=== PATIENT | male | born 1950 | race American Indian/Alaskan Native ===

== ENCOUNTER 2017-08-02 | Inpatient (IN) | payer OTHER ==
[2017-08-02 01:03] LABS: Basophils # (Auto) 0.1 K/mm3 (0.0-0.1); Basophils % (Auto) 0.4 % (0.0-1.8); Eosinophils % (Auto) 0.2 % (0.0-4.3); Hematocrit 40.1 % (35.5-45.6); Hemoglobin 12.7 gm/dl (11.8-15.2); Lymphocytes # (Auto) 0.5 K/mm3 (1.2-5.4); Lymphocytes % (Auto) 3.3 % (13.4-35.0); Mean Corpuscular HGB Conc 32 % (32-34); Mean Corpuscular Hemoglobin 27 pg (28-32); Mean Corpuscular Volume 85 fl (84-94); Monocytes # (Auto) 1.1 K/mm3 (0.0-0.8); Monocytes % (Auto) 6.8 % (0.0-7.3); Platelet Count 298 K/mm3 (140-440); Red Blood Count 4.74 M/mm3 (3.65-5.03); Red Cell Distribution Width 14.8 % (13.2-15.2)
[2017-08-02 01:09] LABS: Calcium 8.6 mg/dL (8.4-10.2)
--- NOTE | 2017-08-02 01:17 | Emergency Department Report ---
HPI - General Chief Complaint: Syncope Time Seen by Provider: 08/02/17 00:59 - HPI HPI: Room 6 The patient is a 66-year-old male presenting with a chief complaint of syncope. He states this evening at approximately 23:30 he was walking into the room when began to feel off balance as he noticed himself bouncing into the driver. Family states the patient walked into the room and then fell face first onto the ground. There was no seizure activity. Family states the patient began to respond after approximately 10 seconds. Patient only complains of pain to the left supraorbital ridge. Patient denied any preceding/following chest pain, shortness of breath, headache nausea or vomiting. Patient is certain he is up- to-date with his tetanus Location: Central nervous system Duration: [See above] Quality: Syncope Severity: Moderate Modifying factors: [see above] Context: [see above] Mode of transportation: [not driving] ED Past Medical Hx - Past Medical History Previous Medical History?: Yes Hx Hypertension: Yes (non-compliant w/meds) Hx Seizures: Yes Additional medical history: 3.5 cm frontal mass secondary to meningioma seen on MRI 09/18/2014 - Surgical History Past Surgical History?: Yes Hx Appendectomy: Yes Additional Surgical History: Brain sx - Family History Family history: no significant - Social History Smoking Status: Current Every Day Smoker (1/14 pack per day) Substance Use Type: None (denies illicit drug use), Alcohol (24 ounces of beer daily) - Medications Home Medications: Home Medications Medication Instructions Recorded Confirmed Last Taken Type levETIRAcetam [Keppra TAB] 500 mg PO BID #60 tablet 09/20/14 11/25/15 10/20/14 Rx Citalopram Hydrobromide [celeXA] 40 mg PO DAILY 11/25/15 11/25/15 Unknown History ED Review of Systems ROS: Stated complaint: LOW BP Other details as noted in HPI Eyes: denies: eye pain ENT: denies: throat pain Respiratory: denies: shortness of breath Cardiovascular: denies: chest pain Gastrointestinal: denies: abdominal pain, nausea, vomiting Genitourinary: denies: dysuria Musculoskeletal: denies: back pain Neurological: other (syncope). denies: headache Physical Exam - Physical Exam Vital Signs: Vital Signs 08/02/17 00:26 Temperature 98 F Pulse Rate 89 Respiratory 18 Rate Blood Pressure 115/57 Blood Pressure 115/57 [Right] O2 Sat by Pulse 96 Oximetry Physical Exam: GENERAL: The patient is well-developed well-nourished male lying on stretcher not appearing to be in acute distress. [] HEENT: Normocephalic. Healing laceration just lateral to the left supraorbital ridge. There is already scab formation. Extraocular motions are intact. Patient has moist mucous membranes. NECK: Supple. Trachea midline CHEST/LUNGS: Clear to auscultation. There is no respiratory distress noted. HEART/CARDIOVASCULAR: Regular. There is no tachycardia. There is no gallop rub or murmur. ABDOMEN: Abdomen is soft, nontender. Patient has normal bowel sounds. There is no abdominal distention. SKIN: There is no rash. There is no edema. There is no diaphoresis. NEURO: The patient is awake, alert, and oriented. The patient is cooperative. The patient has no focal neurologic deficits. The patient has normal speech. Cranial nerves II through XII grossly intact, no drift MUSCULOSKELETAL: There is no evidence of acute injury. ED Course Vital Signs 08/02/17 00:26 Temperature 98 F Pulse Rate 89 Respiratory 18 Rate Blood Pressure 115/57 Blood Pressure 115/57 [Right] O2 Sat by Pulse 96 Oximetry ED Medical Decision Making - Lab Data Result diagrams: 08/02/17 00:38 08/02/17 00:38 Laboratory Tests 08/02/17 08/02/17 08/02/17 00:38 00:38 00:38 WBC 16.3 H RBC 4.74 Hgb 12.7 Hct 40.1 MCV 85 MCH 27 L MCHC 32 RDW 14.8 Plt Count 298 Lymph % (Auto) 3.3 L [place] % (Auto) 6.8 Eos % (Auto) 0.2 Baso % (Auto) 0.4 Lymph # 0.5 L [place] # 1.1 H Eos # 0.0 Baso # 0.1 Seg Neutrophils % 89.3 H Seg Neutrophils # 14.5 H Sodium 137 Potassium 4.5 Chloride 97.9 L Carbon Dioxide 25 Anion Gap 19 BUN 14 Creatinine 1.5 Estimated GFR 57 BUN/Creatinine Ratio 9 Glucose 107 H Calcium 8.6 Total Creatine Kinase 222 H CK-MB (CK-2) 2.4 CK-MB (CK-2) Rel Index 1.0 Troponin T < 0.010 Plasma/Serum Alcohol 08/02/17 01:29 WBC RBC Hgb Hct MCV MCH MCHC RDW Plt Count Lymph % (Auto) [place] % (Auto) Eos % (Auto) Baso % (Auto) Lymph # [place] # Eos # Baso # Seg Neutrophils % Seg Neutrophils # Sodium Potassium Chloride Carbon Dioxide Anion Gap BUN Creatinine Estimated GFR BUN/Creatinine Ratio Glucose Calcium Total Creatine Kinase CK-MB (CK-2) CK-MB (CK-2) Rel Index Troponin T Plasma/Serum Alcohol < 0.01 - EKG Data -: EKG Interpreted by Me EKG shows normal: sinus rhythm Rate: normal - EKG Data When compared to previous EKG there are: previous EKG unavailable Interpretation: nonspecific ST-T wave yuri (biphasic T waves in leads V3, V4, V5 , V6) - Radiology Data Radiology results: report reviewed (CT head), image reviewed (CT head, CT cervical spine) CT head (read by radiologist)-no acute intracranial abnormality CT cervical spine (read by radiologist)- no acute cervical fracture identified - Differential Diagnosis syncope, dysrhythmia, ACS, ICH Critical care attestation.: If time is entered above; I have spent that time in minutes in the direct care of this critically ill patient, excluding procedure time. ED Disposition Clinical Impression: Syncope Disposition: DC-09 OP ADMIT IP TO THIS HOSP Is pt being admited?: Yes Does the pt Need Aspirin: Yes Condition: Fair Instructions: Syncope (ED) Referrals: ASCENCION MENJIVAR MD [Primary Care Provider] - 3-5 Days Time of Disposition: 04:07 (hospitalist paged (Dr. Rosina Campbell))
[2017-08-02 01:38] LABS: Creatine Kinase MB 2.4 ng/mL (0.0-4.0)
--- NOTE | 2017-08-02 03:57 | Cat Scan Report ---
FINAL REPORT EXAM: CT HEAD/BRAIN WO CON HISTORY: syncope, fell on face TECHNIQUE: CT imaging is acquired through the brain without contrast. Transaxial reformations are provided. PRIORS: None. FINDINGS: Prior right frontal craniotomy with associated subjacent encephalomalacia. Ventricles and CSF spaces are otherwise within normal limits. There are additional scattered deep and subcortical white matter hypodense foci, which are compatible with microvascular angiopathy. No acute intracranial hemorrhage or mass effect. No acute skull fracture. No significant abnormality within the imaged paranasal sinuses or mastoid air cells. IMPRESSION: No acute intracranial abnormality. 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
--- NOTE | 2017-08-02 04:03 | Cat Scan Report ---
FINAL REPORT EXAM: CT CERVICAL SPINE WO CON HISTORY: syncope, fell on face TECHNIQUE: CT imaging is acquired through the cervical spine without contrast. Transaxial, coronal and sagittal reformations are provided. PRIORS: None. FINDINGS: The cervical spine appears intact. There is moderate intervertebral disc space narrowing at C5-C6 and C6-C7 is with associated endplate remodeling and spondylosis. Vertebral body heights are otherwise preserved. No acute fracture or listhesis. Atlanto-dens interval and odontoid process are intact. Intervertebral disc spaces are otherwise preserved. No perivertebral soft tissue swelling or hematoma identified. Limited soft tissue exam of the visualized neck is unremarkable. Partially imaged centrilobular emphysema in the lung apices. IMPRESSION: No acute cervical spine fracture identified. Sensitivity of fracture detection is decreased by degenerative findings. Correlate with physical exam and follow up as warranted.
[2017-08-02] MEDS ORDERED: ASPIRIN PO ONE (04:07)
[2017-08-02 04:08] LABS: Free T4 (Free Thyroxine) 1.05 ng/dL (0.76-1.46)
[2017-08-02] MEDS ORDERED: ASPIRIN ONE (04:38)
[2017-08-02] MEDS ORDERED: ZOFRAN IV PRN (05:36)
[2017-08-02] MEDS ORDERED: TYLENOL PO PRN (05:36)
[2017-08-02] MEDS ORDERED: SODIUM CHLORIDE FLUSH SYRINGE 10 ML IV PRN (05:36)
--- NOTE | 2017-08-02 06:28 | History and Physical Report ---
History of Present Illness Date of examination: 08/02/17 Date of admission: 08/02/17 04:09 History of present illness: 66-year-old man history of hypertension, seizure comes emergency room because all he was walking in the house he had a syncopal episode for about 10 seconds. He sustained an abrasion to the left face. No aurathat's that's really where , morning symptoms Review of systems Constitutional: no weight loss, chills Ears, eyes, nose, mouth and throat: no nasal congestion, no nasal discharge, no sinus pressure, no vision change, no red eye. Neck: No neck pain or rigidity. Cardiovascular: no chest pain, palpitations Respiratory: No cough, shortness of breath Gastrointestinal: no abdominal pain, hematochezia Genitourinary : no dysuria, frequency , no hematuria Musculoskeletal: no joint swelling or muscle ache Integumentary: no rash, no pruritis Neurological: no parathesias, no numbness, no focal weakness Endocrine: no cold or heat intolerance, no polyuria or polydipsia Hematologic/Lymphatic: no easy bruising, no easy bleeding, no gland swelling Allergic/Immunologic: no urticaria, no angioedema. PAST MEDICAL HISTORY: Hypertension, seizure PAST SURGICAL HISTORY: Appendectomy, excision of brain tumor SOCIAL HISTORY: Denies tobacco, drugs, one beer a day FAMILY HISTORY: Hypertension Medications and Allergies Allergies Allergy/AdvReac Type Severity Reaction Status Date / Time No Known Allergies Allergy Verified 09/18/14 20:27 Home Medications Medication Instructions Recorded Confirmed Last Taken Type levETIRAcetam [Keppra TAB] 500 mg PO BID #60 tablet 09/20/14 08/02/17 10/20/14 Rx Citalopram Hydrobromide [celeXA] 40 mg PO DAILY 11/25/15 08/02/17 Unknown History Cholecalciferol (Vitamin D3) 1,000 unit PO DAILY 08/02/17 08/02/17 Unknown History [Vitamin D3] Finasteride [Proscar] 5 mg PO DAILY 08/02/17 08/02/17 Unknown History Tamsulosin HCl [Flomax] 0.4 mg PO DAILY 08/02/17 08/02/17 Unknown History Lisinopril [Zestril TAB] 2.5 mg PO QDAY #30 tab 08/05/17 Unknown Rx Active Meds: Active Medications Acetaminophen (Tylenol) 650 mg PO Q4H PRN PRN Reason: Pain MILD(1-3)/Fever >100.5/GUNTER Ondansetron HCl (Zofran) 4 mg IV Q8H PRN PRN Reason: Nausea And Vomiting Pneumococcal Polyvalent Vaccine (Pneumovax 23) 0.5 ml IM .ONCE ONE Stop: 08/02/17 12:01 Sodium Chloride (Sodium Chloride Flush Syringe 10 Ml) 10 ml IV BID NETTA Sodium Chloride (Sodium Chloride Flush Syringe 10 Ml) 10 ml IV PRN PRN PRN Reason: LINE FLUSH Exam - Physical Exam Narrative exam: Gen. appearance: Patient lying in bed, no apparent distress HEENT: Normocephalic, atraumatic, pupils equally round and reactive to light, extraocular movement intact, and no sclericterus,. No JVD or thyromegaly or nodule,neck supple, no carotid bruit ,mucous membranes moist, no exudate or erythema Heart: S1, S2, regular rate and rhythm Lungs: Clear to auscultation bilaterally, breathing comfortable Abdomen: Positive bowel sounds, nontender, nondistended, no organomegaly Extremity: No edema, cyanosis, clubbing Skin: No rash, nodules, warm, dry Neuro: Oriented 3, cranial nerves II-12 intact, speech is fluent, motor and sensory intact - Constitutional Vitals: Temp Pulse Resp BP Pulse Ox 97.6 F 83 21 111/70 95 08/02/17 04:52 08/02/17 04:40 08/02/17 04:40 08/02/17 04:40 08/02/17 04:40 Results - Labs CBC & Chem 7: 08/03/17 05:40 08/03/17 05:40 Labs: Abnormal lab results 08/02/17 08/02/17 08/02/17 Range/Units 00:38 00:38 00:38 WBC 16.3 H (4.5-11.0) K/mm3 MCH 27 L (28-32) pg Lymph % (Auto) 3.3 L (13.4-35.0) % Lymph # 0.5 L (1.2-5.4) K/mm3 [place] # 1.1 H (0.0-0.8) K/mm3 Seg Neutrophils % 89.3 H (40.0-70.0) % Seg Neutrophils # 14.5 H (1.8-7.7) K/mm3 Chloride 97.9 L (98-107) mmol/L Glucose 107 H (75-100) mg/dL Total Creatine Kinase 222 H (55-170) units/L - Imaging and Cardiology CT Scan - head: report reviewed Assessment and Plan CT neck reviewed Assessment Syncope Leukocytosis Hypertension Seizure Plan Admit to medicine Check cardiac enzymes, orthostatics, carotid Doppler, echo Consult cardiology, panculture, no signs of infection DVT prophylaxis
--- NOTE | 2017-08-02 08:35 | XRay Report ---
FINAL REPORT EXAM: XR CHEST 1V AP HISTORY: hi wbc TECHNIQUE: AP portable view(s) of the chest obtained. PRIORS: None. FINDINGS: No mediastinal shift. Cardiac silhouette is not enlarged. Hyperaeration of the lungs. No pneumothorax, effusion, or focal pulmonary opacity identified. No acute skeletal findings. IMPRESSION: No acute pulmonary finding identified. Sequela of COPD.
--- NOTE | 2017-08-02 09:11 | Progress Note ---
Assessment and Plan Syncope Leukocytosis Hypertension Seizure Plan Admit to medicine Check cardiac enzymes, orthostatics, carotid Doppler, echo Consult cardiology, panculture, no signs of infection DVT prophylaxis Subjective Date of service: 08/02/17 Objective - Constitutional Vitals: Vital Signs - 12hr 08/02/17 08/02/17 08/02/17 00:26 01:00 03:06 Temperature 98 F Pulse Rate 89 87 84 Pulse Rate [ Apical] Respiratory 18 21 22 Rate Blood Pressure 115/57 93/71 111/57 Blood Pressure 115/57 [Right] O2 Sat by Pulse 96 97 93 Oximetry 08/02/17 08/02/17 08/02/17 04:00 04:40 04:52 Temperature 97.6 F Pulse Rate 79 83 Pulse Rate [ Apical] Respiratory 24 21 Rate Blood Pressure 108/68 111/70 Blood Pressure [Right] O2 Sat by Pulse 95 95 Oximetry 08/02/17 06:24 Temperature Pulse Rate Pulse Rate [ 83 Apical] Respiratory 20 Rate Blood Pressure Blood Pressure [Right] O2 Sat by Pulse Oximetry - Labs CBC & Chem 7: 08/02/17 00:38 08/02/17 00:38 Labs: Abnormal lab results 08/02/17 08/02/17 08/02/17 Range/Units 00:38 00:38 00:38 WBC 16.3 H (4.5-11.0) K/mm3 MCH 27 L (28-32) pg Lymph % (Auto) 3.3 L (13.4-35.0) % Lymph # 0.5 L (1.2-5.4) K/mm3 [place] # 1.1 H (0.0-0.8) K/mm3 Seg Neutrophils % 89.3 H (40.0-70.0) % Seg Neutrophils # 14.5 H (1.8-7.7) K/mm3 Chloride 97.9 L (98-107) mmol/L Glucose 107 H (75-100) mg/dL Total Creatine Kinase 222 H (55-170) units/L 08/02/17 Range/Units 06:26 WBC (4.5-11.0) K/mm3 MCH (28-32) pg Lymph % (Auto) (13.4-35.0) % Lymph # (1.2-5.4) K/mm3 [place] # (0.0-0.8) K/mm3 Seg Neutrophils % (40.0-70.0) % Seg Neutrophils # (1.8-7.7) K/mm3 Chloride (98-107) mmol/L Glucose (75-100) mg/dL Total Creatine Kinase 183 H (55-170) units/L
--- NOTE | 2017-08-02 09:30 | Event Note ---
Date: 08/02/17 Patient seen and examined Admitted this morning with a syncopal episode We'll continue current management and plan as dictated in H&P We will get physical therapy eval before discharge
[2017-08-02] MEDS ORDERED: NACL 0.9% 1000 ML 1,000 ML IV SCH (10:00)
[2017-08-02] MEDS ORDERED: NORVASC PO SCH (10:00)
[2017-08-02] MEDS: KEPPRA PO SCH ×2 (10:23→22:49)
[2017-08-02] MEDS: PROSCAR PO SCH (10:31)
[2017-08-02] MEDS: VITAMIN D3 PO SCH (10:32)
[2017-08-02] MEDS: SODIUM CHLORIDE FLUSH SYRINGE 10 ML IV SCH (10:42)
[2017-08-02 11:08] LABS: Bilirubin,Urine NEG (Negative); Blood,Urine SM (Negative); Color,Urine Yellow (Yellow); Protein,Urine <15 mg/dL mg/dL (Negative); RBC,Urine < 1.0 /HPF (0.0-6.0); Urobilinogen,Urine < 2.0 mg/dL (<2.0)
--- NOTE | 2017-08-02 11:09 | Consultation ---
History of Present Illness Consult date: 08/02/17 Consult reason: syncope History of present illness: 66 YO man with prior h/o brain tumor s/p resection/chemotherapy/radiation, htn, seizures, and polysubstance abuse who presented to hospital after episode of syncope. He reports he had been in his usual state of health and standing when he suddenly lost consciousness. He can not recall the exact symptoms prior to the episode but does not think he had any preceeding chest pain or palpitations. He is a poor historian and is not able to recall the nature of his previous brain tumor or where he had his treatment. He has prior h/o alcohol and cocaine abuse and reports he continues to drink 5- 6 drinks per day and used cocaine within the week. Past History Past Medical History: hypertension, other (brain tumor) Past Surgical History: appendectomy, Other (craniotomy for brain tumor resection ) Social history: alcohol abuse, other (cocaine abuse) Family history: hypertension Medications and Allergies Allergies Allergy/AdvReac Type Severity Reaction Status Date / Time No Known Allergies Allergy Verified 09/18/14 20:27 Home Medications Medication Instructions Recorded Confirmed Last Taken Type levETIRAcetam [Keppra TAB] 500 mg PO BID #60 tablet 09/20/14 08/02/17 10/20/14 Rx Citalopram Hydrobromide [celeXA] 40 mg PO DAILY 11/25/15 08/02/17 Unknown History Amlodipine Besylate [Norvasc] 5 mg PO DAILY 08/02/17 08/02/17 Unknown History Cholecalciferol (Vitamin D3) 1,000 unit PO DAILY 08/02/17 08/02/17 Unknown History [Vitamin D3] Finasteride [Proscar] 5 mg PO DAILY 08/02/17 08/02/17 Unknown History Tamsulosin HCl [Flomax] 0.4 mg PO DAILY 08/02/17 08/02/17 Unknown History Active Meds: Active Medications Acetaminophen (Tylenol) 650 mg PO Q4H PRN PRN Reason: Pain MILD(1-3)/Fever >100.5/GUNTER Cholecalciferol (Vitamin D3) 1,000 unit PO DAILY NETTA Citalopram Hydrobromide (Celexa) 40 mg PO DAILY NETTA Enoxaparin Sodium (Lovenox) 40 mg SUB-Q QDAY@2200 NETTA Finasteride (Proscar) 5 mg PO DAILY NETTA Sodium Chloride (Nacl 0.9% 1000 Ml) 1,000 mls @ 75 mls/hr IV DIRECT NETTA Levetiracetam (Keppra) 500 mg PO BID [facility] Ondansetron HCl (Zofran) 4 mg IV Q8H PRN PRN Reason: Nausea And Vomiting Pneumococcal Polyvalent Vaccine (Pneumovax 23) 0.5 ml IM .ONCE ONE Stop: 08/02/17 12:01 Sodium Chloride (Sodium Chloride Flush Syringe 10 Ml) 10 ml IV BID NETTA Sodium Chloride (Sodium Chloride Flush Syringe 10 Ml) 10 ml IV PRN PRN PRN Reason: LINE FLUSH Tamsulosin HCl (Flomax) 0.4 mg PO DAILY [facility] Review of Systems All systems: negative (per hpi) Physical Examination Vital Signs Temp Pulse Resp BP Pulse Ox 98 F 89 18 115/57 96 08/02/17 00:26 08/02/17 00:26 08/02/17 00:26 08/02/17 00:26 08/02/17 00:26 General appearance: no acute distress HEENT: Positive: PERRL, EOMI Cardiac: Positive: Reg Rate and Rhythm. Negative: Systolic Murmur Lungs: Positive: clear to auscultation, Normal Breath Sounds Abdomen: Positive: Soft, Active Bowel Sounds Extremities: Absent: edema Results 08/02/17 00:38 08/02/17 00:38 Cardiac Enzymes 08/02/17 08/02/17 08/02/17 Range/Units 00:38 00:38 00:38 WBC 16.3 H (4.5-11.0) K/mm3 RBC 4.74 (3.65-5.03) M/mm3 Hgb 12.7 (11.8-15.2) gm/dl Hct 40.1 (35.5-45.6) % MCV 85 (84-94) fl MCH 27 L (28-32) pg MCHC 32 (32-34) % RDW 14.8 (13.2-15.2) % Plt Count 298 (140-440) K/mm3 Lymph % (Auto) 3.3 L (13.4-35.0) % [place] % (Auto) 6.8 (0.0-7.3) % Eos % (Auto) 0.2 (0.0-4.3) % Baso % (Auto) 0.4 (0.0-1.8) % Lymph # 0.5 L (1.2-5.4) K/mm3 [place] # 1.1 H (0.0-0.8) K/mm3 Eos # 0.0 (0.0-0.4) K/mm3 Baso # 0.1 (0.0-0.1) K/mm3 Seg Neutrophils % 89.3 H (40.0-70.0) % Seg Neutrophils # 14.5 H (1.8-7.7) K/mm3 D-Dimer (0-234) ng/mlDDU Sodium 137 (137-145) mmol/L Potassium 4.5 (3.6-5.0) mmol/L Chloride 97.9 L (98-107) mmol/L Carbon Dioxide 25 (22-30) mmol/L Anion Gap 19 mmol/L BUN 14 (9-20) mg/dL Creatinine 1.5 (0.8-1.5) mg/dL Estimated GFR 57 ml/min BUN/Creatinine Ratio 9 % Glucose 107 H (75-100) mg/dL Calcium 8.6 (8.4-10.2) mg/dL Total Creatine Kinase 222 H (55-170) units/L CK-MB (CK-2) 2.4 (0.0-4.0) ng/mL CK-MB (CK-2) Rel Index 1.0 (0-4) Troponin T < 0.010 (0.00-0.029) ng/mL TSH (0.270-4.200) mlU/mL Free T4 (0.76-1.46) ng/dL Plasma/Serum Alcohol (0-0.07) % 08/02/17 08/02/17 08/02/17 Range/Units 01:29 01:29 04:22 WBC (4.5-11.0) K/mm3 RBC (3.65-5.03) M/mm3 Hgb (11.8-15.2) gm/dl Hct (35.5-45.6) % MCV (84-94) fl MCH (28-32) pg MCHC (32-34) % RDW (13.2-15.2) % Plt Count (140-440) K/mm3 Lymph % (Auto) (13.4-35.0) % [place] % (Auto) (0.0-7.3) % Eos % (Auto) (0.0-4.3) % Baso % (Auto) (0.0-1.8) % Lymph # (1.2-5.4) K/mm3 [place] # (0.0-0.8) K/mm3 Eos # (0.0-0.4) K/mm3 Baso # (0.0-0.1) K/mm3 Seg Neutrophils % (40.0-70.0) % Seg Neutrophils # (1.8-7.7) K/mm3 D-Dimer 154.93 (0-234) ng/mlDDU Sodium (137-145) mmol/L Potassium (3.6-5.0) mmol/L Chloride (98-107) mmol/L Carbon Dioxide (22-30) mmol/L Anion Gap mmol/L BUN (9-20) mg/dL Creatinine (0.8-1.5) mg/dL Estimated GFR ml/min BUN/Creatinine Ratio % Glucose (75-100) mg/dL Calcium (8.4-10.2) mg/dL Total Creatine Kinase (55-170) units/L CK-MB (CK-2) (0.0-4.0) ng/mL CK-MB (CK-2) Rel Index (0-4) Troponin T (0.00-0.029) ng/mL TSH 1.080 (0.270-4.200) mlU/mL Free T4 1.05 (0.76-1.46) ng/dL Plasma/Serum Alcohol < 0.01 (0-0.07) % 08/02/17 Range/Units 06:26 WBC (4.5-11.0) K/mm3 RBC (3.65-5.03) M/mm3 Hgb (11.8-15.2) gm/dl Hct (35.5-45.6) % MCV (84-94) fl MCH (28-32) pg MCHC (32-34) % RDW (13.2-15.2) % Plt Count (140-440) K/mm3 Lymph % (Auto) (13.4-35.0) % [place] % (Auto) (0.0-7.3) % Eos % (Auto) (0.0-4.3) % Baso % (Auto) (0.0-1.8) % Lymph # (1.2-5.4) K/mm3 [place] # (0.0-0.8) K/mm3 Eos # (0.0-0.4) K/mm3 Baso # (0.0-0.1) K/mm3 Seg Neutrophils % (40.0-70.0) % Seg Neutrophils # (1.8-7.7) K/mm3 D-Dimer (0-234) ng/mlDDU Sodium (137-145) mmol/L Potassium (3.6-5.0) mmol/L Chloride (98-107) mmol/L Carbon Dioxide (22-30) mmol/L Anion Gap mmol/L BUN (9-20) mg/dL Creatinine (0.8-1.5) mg/dL Estimated GFR ml/min BUN/Creatinine Ratio % Glucose (75-100) mg/dL Calcium (8.4-10.2) mg/dL Total Creatine Kinase 183 H (55-170) units/L CK-MB (CK-2) 2.0 (0.0-4.0) ng/mL CK-MB (CK-2) Rel Index 1.0 (0-4) Troponin T < 0.010 (0.00-0.029) ng/mL TSH (0.270-4.200) mlU/mL Free T4 (0.76-1.46) ng/dL Plasma/Serum Alcohol (0-0.07) % CBC 08/02/17 Range/Units 00:38 WBC 16.3 H (4.5-11.0) K/mm3 RBC 4.74 (3.65-5.03) M/mm3 Hgb 12.7 (11.8-15.2) gm/dl Hct 40.1 (35.5-45.6) % Plt Count 298 (140-440) K/mm3 Lymph # 0.5 L (1.2-5.4) K/mm3 [place] # 1.1 H (0.0-0.8) K/mm3 Eos # 0.0 (0.0-0.4) K/mm3 Baso # 0.1 (0.0-0.1) K/mm3 Comprehensive Metabolic Panel 08/02/17 Range/Units 00:38 Sodium 137 (137-145) mmol/L Potassium 4.5 (3.6-5.0) mmol/L Chloride 97.9 L (98-107) mmol/L Carbon Dioxide 25 (22-30) mmol/L BUN 14 (9-20) mg/dL Creatinine 1.5 (0.8-1.5) mg/dL Glucose 107 H (75-100) mg/dL Calcium 8.6 (8.4-10.2) mg/dL Assessment and Plan Syncope: Suspect his syncopal event is related to neurological process or seizure H/O brain tumor s/p resection, chemotherapy, and radiation Htn H/O Polysubstance abuse with ongoing alcohol and cocaine abuse. Recommend: Check Echocardiogram Check 12 lead ECG Telemetry monitoring Neurology Evaluation Patient counseled regarding abstaining from alcohol and cocaine abuse.
[2017-08-02] MEDS ORDERED: PNEUMOVAX 23 IM ONE (12:00)
[2017-08-02 13:52] LABS: Creatine Kinase MB 2.4 ng/mL (0.0-4.0)
[2017-08-02] MEDS: celeXA PO SCH (15:22)
[2017-08-02] MEDS: FLOMAX PO SCH (15:23)
[2017-08-02] MEDS: LOVENOX SUB-Q SCH (22:49)
[2017-08-03 05:58] LABS: Basophils % (Auto) 0.6 % (0.0-1.8); Eosinophils # (Auto) 0.3 K/mm3 (0.0-0.4); Eosinophils % (Auto) 3.7 % (0.0-4.3); Hematocrit 34.3 % (35.5-45.6); Hemoglobin 11.7 gm/dl (11.8-15.2); Lymphocytes # (Auto) 1.2 K/mm3 (1.2-5.4); Lymphocytes % (Auto) 15.5 % (13.4-35.0); Mean Corpuscular HGB Conc 34 % (32-34); Mean Corpuscular Hemoglobin 28 pg (28-32); Mean Corpuscular Volume 83 fl (84-94); Monocytes # (Auto) 0.8 K/mm3 (0.0-0.8); Monocytes % (Auto) 9.4 % (0.0-7.3); Platelet Count 291 K/mm3 (140-440); Red Blood Count 4.16 M/mm3 (3.65-5.03); Red Cell Distribution Width 14.8 % (13.2-15.2)
[2017-08-03 06:20] LABS: BUN/Creatinine Ratio 13; Blood Urea Nitrogen 15 mg/dL (9-20); Calcium 7.9 mg/dL (8.4-10.2); Hemolysis Index 4
[2017-08-03] MEDS: celeXA PO SCH (09:50)
[2017-08-03] MEDS: KEPPRA PO SCH ×2 (09:50→22:27)
[2017-08-03] MEDS: VITAMIN D3 PO SCH (09:51)
[2017-08-03] MEDS: PROSCAR PO SCH (09:51)
[2017-08-03] MEDS: FLOMAX PO SCH (09:51)
--- NOTE | 2017-08-03 11:17 | Progress Note ---
Assessment and Plan Syncope: Suspect his syncopal event is related to neurological process or seizure H/O brain tumor s/p resection, chemotherapy, and radiation Htn H/O Polysubstance abuse with ongoing alcohol and cocaine abuse Echocardiogram reports a mildly decreased LV function, EF 40-45%. Recommend: No further cardiac workup indicated. Patient counseled regarding abstaining from alcohol and cocaine abuse. [facility]. Subjective Date of service: 08/03/17 Interval history: Patient has no complaints. No reported cardiac events on telemetry monitoring overnight. Objective Vital Signs Temp Pulse Resp BP Pulse Ox 08/03/17 07:48 98.1 F 75 18 141/87 97 08/03/17 04:10 98.2 F 76 16 119/72 95 08/02/17 23:42 98.6 F 86 18 108/70 96 08/02/17 22:00 18 08/02/17 21:30 96 08/02/17 19:40 98.8 F 80 20 121/81 93 08/02/17 18:00 99.5 F 88 18 116/70 94 08/02/17 14:14 96 08/02/17 12:42 98.3 F 80 20 107/71 96 - Physical Examination General: No Apparent Distress HEENT: Positive: PERRL Cardiac: Positive: Reg Rate and Rhythm Neuro: Positive: Grossly Intact Abdomen: Positive: Soft, Active Bowel Sounds Extremities: Absent: edema - Labs and Meds Cardiac Enzymes 08/02/17 Range/Units 13:02 CK-MB (CK-2) 2.4 (0.0-4.0) ng/mL CBC 08/03/17 Range/Units 05:40 WBC 8.1 (4.5-11.0) K/mm3 RBC 4.16 (3.65-5.03) M/mm3 Hgb 11.7 L (11.8-15.2) gm/dl Hct 34.3 L (35.5-45.6) % Plt Count 291 (140-440) K/mm3 Lymph # 1.2 (1.2-5.4) K/mm3 [place] # 0.8 (0.0-0.8) K/mm3 Eos # 0.3 (0.0-0.4) K/mm3 Baso # 0.0 (0.0-0.1) K/mm3 Comprehensive Metabolic Panel 08/03/17 Range/Units 05:40 Sodium 142 (137-145) mmol/L Potassium 3.9 (3.6-5.0) mmol/L Chloride 106.3 (98-107) mmol/L Carbon Dioxide 24 (22-30) mmol/L BUN 15 (9-20) mg/dL Creatinine 1.2 (0.8-1.5) mg/dL Glucose 100 (75-100) mg/dL Calcium 7.9 L (8.4-10.2) mg/dL
[2017-08-03] MEDS: ZESTRIL PO SCH (14:24)
[2017-08-03] MEDS: NACL 0.9% 1000 ML 1,000 ML IV SCH (21:03)
[2017-08-03] MEDS: LOVENOX SUB-Q SCH (22:27)
[2017-08-03] MEDS: SODIUM CHLORIDE FLUSH SYRINGE 10 ML IV SCH (22:32)
--- NOTE | 2017-08-04 00:56 | Progress Note ---
Assessment and Plan Syncope: - Suspect his syncopal event is related to orthostatic hypotension - will hold BB, normal TSH/T4 - no home needs per PT, CT head showed no acute finding - No further cardiac workup indicated Orthostatic hypotension - hold all BP meds, will order serum cortisol H/O brain tumor - s/p resection, chemotherapy, and radiation - outpt follow up Htn, stable H/O Polysubstance abuse - h/o alcohol and cocaine abuse CHF with systolic dysfunction - Echocardiogram showed decreased LV function, EF 40-45%. h/o Seizure, on keppra BPH, on proscar Disposition: monitor orthostatic vitals, f/u serum morning cortisol. likely d/c home in the am. Patient will f/u with the [place] Brief History: 66 YO man with prior h/o brain tumor s/p resection/chemotherapy/ radiation, htn, seizures, and polysubstance abuse who presented to hospital after episode of syncope. Physical exam: Gen. appearance: Patient lying in bed, no apparent distress HEENT: Normocephalic, atraumatic, pupils equally round and reactive to light, extraocular movement intact, and no sclericterus,. No JVD or thyromegaly or nodule,neck supple, no carotid bruit ,mucous membranes moist, no exudate or erythema Heart: S1, S2, regular rate and rhythm Lungs: Clear to auscultation bilaterally, breathing comfortable Abdomen: Positive bowel sounds, nontender, nondistended, no organomegaly Extremity: No edema, cyanosis, clubbing Skin: No rash, nodules, warm, dry Neuro: Oriented 3, cranial nerves II-12 intact, speech is fluent, motor and sensory intact Subjective Date of service: 08/03/17 Interval history: Pt seen and examined denies any chest pain, ambulatory Had PT eval today, orthostatic vitals showed BP dropped on standing with relative tachycardia Objective - Constitutional Vitals: Vital Signs - 12hr 08/03/17 08/03/17 08/03/17 14:24 16:37 19:32 Temperature 97.9 F Pulse Rate 92 H 74 81 Respiratory 18 Rate Blood Pressure 107/73 128/77 139/84 Blood Pressure [Right] O2 Sat by Pulse 98 92 Oximetry 08/03/17 08/04/17 21:56 00:15 Temperature 98.9 F 98.6 F Pulse Rate 84 Respiratory 18 Rate Blood Pressure Blood Pressure 135/89 [Right] O2 Sat by Pulse Oximetry - Labs CBC & Chem 7: 08/03/17 05:40 08/03/17 05:40 Labs: Abnormal lab results 08/03/17 08/03/17 Range/Units 05:40 05:40 Hgb 11.7 L (11.8-15.2) gm/dl Hct 34.3 L (35.5-45.6) % MCV 83 L (84-94) fl [place] % (Auto) 9.4 H (0.0-7.3) % Seg Neutrophils % 70.8 H (40.0-70.0) % Calcium 7.9 L (8.4-10.2) mg/dL
--- NOTE | 2017-08-04 10:45 | Progress Note ---
Assessment and Plan Syncope Cardiomyopathy, unclear etiology Junctional and idioventricular rhythm noted on telemetry H/O brain tumor s/p resection, chemotherapy, and radiation Systemic Hypertension H/O Polysubstance abuse with ongoing alcohol and cocaine abuse Echocardiogram reports a mildly decreased LV function, EF 40-45%. Recommend: Further evaluation with lexiscan MPI in am given arrhythmias noted on tele Subjective Date of service: 08/04/17 Principal diagnosis: Syncope Interval history: Patient denies chest pain or shortness of breath Tele events noted Objective Vital Signs Temp Pulse Resp BP BP Pulse Ox 08/04/17 00:15 98.6 F 84 18 135/89 08/03/17 22:00 78 18 08/03/17 21:56 98.9 F 08/03/17 19:32 81 139/84 92 08/03/17 16:37 97.9 F 74 18 128/77 98 08/03/17 14:24 92 H 107/73 08/03/17 11:58 97.9 F 18 135/82 - Physical Examination General: No Apparent Distress HEENT: Positive: PERRL Neck: Positive: neck supple Cardiac: Positive: Reg Rate and Rhythm Lungs: Positive: Normal Exam Neuro: Positive: Grossly Intact Abdomen: Positive: Soft, Active Bowel Sounds Extremities: Absent: edema
[2017-08-04] MEDS: FLOMAX PO SCH (11:27)
[2017-08-04] MEDS: KEPPRA PO SCH ×2 (11:28→21:09)
[2017-08-04] MEDS: VITAMIN D3 PO SCH (11:28)
[2017-08-04] MEDS: celeXA PO SCH (11:28)
[2017-08-04] MEDS: PROSCAR PO SCH (11:29)
[2017-08-04] MEDS: NACL 0.9% 1000 ML 1,000 ML IV SCH (14:11)
[2017-08-04] MEDS: LOVENOX SUB-Q SCH (21:09)
[2017-08-05] MEDS: NACL 0.9% 1000 ML 1,000 ML IV SCH (00:44)
[2017-08-05] MEDS: SODIUM CHLORIDE FLUSH SYRINGE 10 ML IV SCH ×2 (00:45→07:41)
--- NOTE | 2017-08-05 05:23 | Progress Note ---
Assessment and Plan Assessment and plan: 66 YO man with prior h/o brain tumor s/p resection/chemotherapy/radiation, htn, seizures, and polysubstance abuse who presented to hospital after episode of syncope. Syncope: - Suspect his syncopal event is related to orthostatic hypotension - will hold BB, normal TSH/T4 - Echo shows 40-45% ef, - [place] of very low dose ACEI if symptoms improve. discussed side effects with the patient - no home needs per PT, CT head showed no acute finding - No further cardiac workup indicated Orthostatic hypotension - hold all BP meds, will order serum cortisol follow result outpatient. H/O brain tumor - s/p resection, chemotherapy, and radiation - outpt follow up Htn, stable H/O Polysubstance abuse - h/o alcohol and cocaine abuse CHF with systolic dysfunction - Echocardiogram showed decreased LV function, EF 40-45%. h/o Seizure, on keppra BPH, on proscar Disposition: monitor orthostatic vitals, f/u serum morning cortisol. likely d/c home in the am. Patient will f/u with the [place] Plan of care discussed with the patient and family at bedside History Interval history: Patient seen and examined, in no acute distress. Sitting up in the chair, denies dizziness, nausea, vomiting or diarrhea. Family at bedside Hospitalist Physical - Physical exam Narrative exam: Gen. appearance: Patient lying in bed, no apparent distress, temporal wasting noted HEENT: Normocephalic, atraumatic, pupils equally round and reactive to light, extraocular movement intact, and no sclericterus,. No JVD or thyromegaly or nodule,neck supple, no carotid bruit ,mucous membranes moist, no exudate or erythema Heart: S1, S2, regular rate and rhythm Lungs: Clear to auscultation bilaterally, breathing comfortable Abdomen: Positive bowel sounds, nontender, nondistended, no organomegaly Extremity: No edema, cyanosis, clubbing Skin: No rash, nodules, warm, dry Neuro: Oriented 3, cranial nerves II-12 intact, speech is fluent, motor and sensory intact - Constitutional Vitals: Temp Pulse Resp BP Pulse Ox 98.1 F 82 20 132/92 97 08/04/17 19:40 08/04/17 23:58 08/04/17 19:40 08/04/17 23:58 08/04/17 23:58 General appearance: Present: no acute distress Results - Labs CBC & Chem 7: 08/03/17 05:40 08/03/17 05:40 Labs: Laboratory Last Values WBC 8.1 K/mm3 (4.5-11.0) 08/03/17 05:40 RBC 4.16 M/mm3 (3.65-5.03) 08/03/17 05:40 Hgb 11.7 gm/dl (11.8-15.2) L 08/03/17 05:40 Hct 34.3 % (35.5-45.6) L 08/03/17 05:40 MCV 83 fl (84-94) L 08/03/17 05:40 MCH 28 pg (28-32) 08/03/17 05:40 MCHC 34 % (32-34) 08/03/17 05:40 RDW 14.8 % (13.2-15.2) 08/03/17 05:40 Plt Count 291 K/mm3 (140-440) 08/03/17 05:40 Lymph % (Auto) 15.5 % (13.4-35.0) 08/03/17 05:40 [place] % (Auto) 9.4 % (0.0-7.3) H 08/03/17 05:40 Eos % (Auto) 3.7 % (0.0-4.3) 08/03/17 05:40 Baso % (Auto) 0.6 % (0.0-1.8) 08/03/17 05:40 Lymph # 1.2 K/mm3 (1.2-5.4) 08/03/17 05:40 [place] # 0.8 K/mm3 (0.0-0.8) 08/03/17 05:40 Eos # 0.3 K/mm3 (0.0-0.4) 08/03/17 05:40 Baso # 0.0 K/mm3 (0.0-0.1) 08/03/17 05:40 Seg Neutrophils % 70.8 % (40.0-70.0) H 08/03/17 05:40 Seg Neutrophils # 5.7 K/mm3 (1.8-7.7) 08/03/17 05:40 D-Dimer 154.93 ng/mlDDU (0-234) 08/02/17 04:22 Sodium 142 mmol/L (137-145) 08/03/17 05:40 Potassium 3.9 mmol/L (3.6-5.0) 08/03/17 05:40 Chloride 106.3 mmol/L (98-107) 08/03/17 05:40 Carbon Dioxide 24 mmol/L (22-30) 08/03/17 05:40 Anion Gap 16 mmol/L 08/03/17 05:40 BUN 15 mg/dL (9-20) 08/03/17 05:40 Creatinine 1.2 mg/dL (0.8-1.5) 08/03/17 05:40 Estimated GFR > 60 ml/min 08/03/17 05:40 BUN/Creatinine Ratio 13 % 08/03/17 05:40 Glucose 100 mg/dL (75-100) 08/03/17 05:40 Calcium 7.9 mg/dL (8.4-10.2) L 08/03/17 05:40 Total Creatine Kinase 200 units/L (55-170) H 08/02/17 13:02 CK-MB (CK-2) 2.4 ng/mL (0.0-4.0) 08/02/17 13:02 CK-MB (CK-2) Rel Index 1.2 (0-4) 08/02/17 13:02 Troponin T < 0.010 ng/mL (0.00-0.029) 08/02/17 13:02 TSH 1.080 mlU/mL (0.270-4.200) 08/02/17 01:29 Free T4 1.05 ng/dL (0.76-1.46) 08/02/17 01:29 Urine Color Yellow (Yellow) 08/02/17 Unknown Urine Turbidity Clear (Clear) 08/02/17 Unknown Urine pH 5.0 (5.0-7.0) 08/02/17 Unknown Ur Specific [place] 1.006 (1.003-1.030) 08/02/17 Unknown Urine Protein <15 mg/dl mg/dL (Negative) 08/02/17 Unknown Urine Glucose (UA) Neg mg/dL (Negative) 08/02/17 Unknown Urine Ketones Neg mg/dL (Negative) 08/02/17 Unknown Urine Blood Sm (Negative) 08/02/17 Unknown Urine Nitrite Neg (Negative) 08/02/17 Unknown Urine Bilirubin Neg (Negative) 08/02/17 Unknown Urine Urobilinogen < 2.0 mg/dL (<2.0) 08/02/17 Unknown Ur Leukocyte Esterase Neg (Negative) 08/02/17 Unknown Urine WBC (Auto) 1.0 /HPF (0.0-6.0) 08/02/17 Unknown Urine RBC (Auto) < 1.0 /HPF (0.0-6.0) 08/02/17 Unknown U Epithel Cells (Auto) < 1.0 /HPF (0-13.0) 08/02/17 Unknown Plasma/Serum Alcohol < 0.01 % (0-0.07) 08/02/17 01:29
[2017-08-05] MEDS: ZESTRIL PO SCH (07:49)
[2017-08-05] MEDS ORDERED: LEXISCAN IV ONE (09:23)
--- NOTE | 2017-08-05 12:52 | Discharge Summary ---
Providers - Providers Date of Admission: 08/02/17 04:09 Attending physician: CHRISTOPHE PATRICIA MD 08/02/17 06:24 Consult to Physician [CONS] Routine Consulting Provider: BE LUKE Reason For Exam: syncope Place consult to:: Notified:: Phone number called:: [phone] Was contact made?: Yes If yes, spoke with:: ESME Time called:: 08:43 Comment:: LOUISE 08/02/17 09:29 Physical Therapy Evaluation and Treat [CONS] Routine Comment: Reason For Exam: Ambulation Primary care physician: ASCENCION MENJIVAR Hospitalization Reason for admission: syncope Condition: Stable Hospital course: 66 YO man with prior h/o brain tumor s/p resection/chemotherapy/radiation, htn, seizures, and polysubstance abuse who presented to hospital after episode of syncope. Patient was noted to be with orthostatic Hypotension, ivf was given while BB was discontinued, patient was counselled about susbtance abuse, stress test wsas done and was negative. patient was noted to have Junctional and idoventricular rhythm on telemetry but did not reoccur. I have advised close follow up with cardiology. TSH was normal as well as free T4. low dose Lisinopril was started on discharge, side effects discussed with the patient. Discharge Diagnosis Syncope Orthostatic hypotension H/O brain tumor Htn, Polysubstance abuse CHF with dsystolic dysfunction Seizure, BPH, Cardiomyopathy, unclear etiology Junctional and idioventricular rhythm noted on telemetry Disposition: DC-01 TO HOME OR SELFCARE Time spent for discharge: 35 mins Core Measure Documentation - Palliative Care Palliative Care/ Comfort Measures: Not Applicable - Core Measures Any of the following diagnoses?: none - VTE Discharge Requirements Deep Vein Thrombosis/Pulmonary Embolism Present on Admission: No Exam - Physical Exam Narrative exam: Gen. appearance: Patient lying in bed, no apparent distress, temporal wasting noted HEENT: Normocephalic, atraumatic, pupils equally round and reactive to light, extraocular movement intact, and no sclericterus,. No JVD or thyromegaly or nodule,neck supple, no carotid bruit ,mucous membranes moist, no exudate or erythema Heart: S1, S2, regular rate and rhythm Lungs: Clear to auscultation bilaterally, breathing comfortable Abdomen: Positive bowel sounds, nontender, nondistended, no organomegaly Extremity: No edema, cyanosis, clubbing Skin: No rash, nodules, warm, dry Neuro: Oriented 3, cranial nerves II-12 intact, speech is fluent, motor and sensory intact - Constitutional Vitals: Temp Pulse Resp BP Pulse Ox 98.4 F 79 18 140/92 98 08/05/17 07:16 08/05/17 10:00 08/05/17 07:16 08/05/17 07:16 08/05/17 07:16 Plan Activity: advance as tolerated, fall precautions Diet: low cholesterol Special Instructions: record daily BP diary Follow up with: ASCENCION MENJIVAR MD [Primary Care Provider] - 3-5 Days TALISHA MARKS MD [Staff Physician] - 7 Days Prescriptions: Lisinopril [Zestril TAB] 2.5 mg PO QDAY #30 tab
[2017-08-05] MEDS: FLOMAX PO SCH (13:33)
[2017-08-05] MEDS: celeXA PO SCH (13:33)
[2017-08-05] MEDS: PROSCAR PO SCH (13:34)
[2017-08-05] MEDS: KEPPRA PO SCH (13:34)
[2017-08-05] MEDS: VITAMIN D3 PO SCH (13:34)
--- NOTE | 2017-08-05 21:33 | Treadmill Report ---
STRESS TEST INDICATION: Syncope, cardiomyopathy, and arrhythmias. ORDERING PHYSICIAN: Dr. Michael Daniel. FINDINGS: There is no scintigraphic evidence of myocardial ischemia. The left ventricle is normal in size. No gating is available due to underlying ventricular arrhythmias. CONCLUSION: No scintigraphic evidence of myocardial ischemia. This is a low risk myocardial perfusion scan associated with a 1-year cardiovascular event, risk of less than 1%. JOB# [id number] AKLori/NTS
[2017-08-06 10:07] VITALS: BP 138/81
--- NOTE | 2017-08-07 17:10 | Vascular Lab Report ---
CAROTID DUPLEX STUDY: RIGHT PSVEDV CCA [id number]:[id number] CCA DIST:7320 ICA PROX:5925 ICA MID:7534 ICA DIST:7130 ECA: 9518 VERT: 65 18 LEFT PSVEDV CCA PROX:[id number] CCA DIST:7320 ICA PROX:8028 ICA MID:7228 ICA DIST:5527 ECA: 9522 VERT: 68 15 REASON FOR EXAM: Syncope. COMMENTS ON THE RIGHT: Doppler frequency analysis is consistent with 16 to 49 percent diameter reduction of the internal carotid artery. A small amount of plaque is seen. The common carotid artery is patent. The external carotid artery is patent. The vertebral artery has antegrade flow. COMMENTS ON THE LEFT: Doppler frequency analysis is consistent with 16 to 49 percent diameter reduction of the internal carotid artery. A small amount of plaque is seen. The common carotid artery is patent. The external carotid artery is patent. The vertebral artery has antegrade flow. IMPRESSION: Less than 50% diameter reduction in the internal carotid arteries bilaterally.
== END 2017-08-05 15:36 | disposition home or self-care (01) | DRG 312 ==
LOC: ED → 4A 04:09
PROVIDERS: ADMIT Internal Medicine; ATTEND Internal Medicine
PROC: 3E0234Z Introduction of Serum, Toxoid and Vaccine into Muscle, Percutaneous Approach (ICD-10-PCS; principal; 2017-08-02)
DX: I95.1 Orthostatic hypotension (principal); I42.9 Cardiomyopathy, unspecified; I44.2 Atrioventricular block, complete; I50.40 Unspecified combined systolic (congestive) and diastolic (congestive) heart failure; I11.0 Hypertensive heart disease with heart failure; F19.10 Other psychoactive substance abuse, uncomplicated; F17.200 Nicotine dependence, unspecified, uncomplicated; D72.829 Elevated white blood cell count, unspecified; R56.9 Unspecified convulsions; N40.0 Benign prostatic hyperplasia without lower urinary tract symptoms; Z90.49 Acquired absence of other specified parts of digestive tract; Z72.89 Other problems related to lifestyle; Z79.899 Other long term (current) drug therapy; Z82.49 Family history of ischemic heart disease and other diseases of the circulatory system; Z23 Encounter for immunization
CPT/HCPCS: 36415; 70450; 71045; 72125; 78452; 80048; 80320; 81001; 82533; 82550; 82553; 84439; 84443; 84484; 85025; 85379; 87040; 90732; 93005; 93010; 93017; 93306; 93880; 99406; A9502; G0480; G8978-GP; G8979-GP; G8980-GP; J1650; J2785; J7030

== ENCOUNTER 2017-09-25 20:20 | Inpatient (IN) | payer OTHER ==
--- NOTE | 2017-09-25 21:54 | Emergency Department Report ---
HPI - General Chief Complaint: Dizziness Time Seen by Provider: 09/25/17 21:33 - HPI HPI: Room 26 The patient is a 66-year-old male presenting with a chief complaint of lightheadedness. The patient states he's been lightheaded for 1 day. The patient stated for past 3-4 days his shortness of breath, shallow respirations and anterior chest pain. The patient describes his chest pain is dull in nature. Patient is to call this productive of clear mucous. Patient denies any history of fever over his spouse has noticed a subjective fever. There's been no nausea vomiting or diarrhea. Location: [See above] Duration: [See above] Quality: [See above] Severity: [See above] Modifying factors: [see above] Context: [see above] Mode of transportation: [not driving] ED Past Medical Hx - Past Medical History Hx Hypertension: Yes Hx Seizures: Yes Additional medical history: 3.5 cm frontal mass secondary to meningioma seen on MRI 09/18/2014 (surgically removed) - Surgical History Hx Appendectomy: Yes Additional Surgical History: Brain sx - Family History Family history: no significant - Social History Smoking Status: Current Some Day Smoker Substance Use Type: Marijuana - Medications Home Medications: Home Medications Medication Instructions Recorded Confirmed Last Taken Type levETIRAcetam [Keppra TAB] 500 mg PO BID #60 tablet 09/20/14 08/02/17 10/20/14 Rx Citalopram Hydrobromide [celeXA] 40 mg PO DAILY 11/25/15 08/02/17 Unknown History Cholecalciferol (Vitamin D3) 1,000 unit PO DAILY 08/02/17 08/02/17 Unknown History [Vitamin D3] Finasteride [Proscar] 5 mg PO DAILY 08/02/17 08/02/17 Unknown History Tamsulosin HCl [Flomax] 0.4 mg PO DAILY 08/02/17 08/02/17 Unknown History Lisinopril [Zestril TAB] 2.5 mg PO QDAY #30 tab 08/05/17 Unknown Rx ED Review of Systems ROS: Stated complaint: WEAKNESS Other details as noted in HPI Constitutional: fever (subjective) Respiratory: cough, shortness of breath Cardiovascular: chest pain Gastrointestinal: denies: nausea, vomiting, diarrhea Musculoskeletal: arthralgia Neurological: other (lightheadedness). denies: headache Physical Exam - Physical Exam Vital Signs: Vital Signs 09/25/17 20:57 Temperature 97 F L Pulse Rate 78 Respiratory 20 Rate Blood Pressure 86/56 O2 Sat by Pulse 96 Oximetry Physical Exam: GENERAL: The patient is well-developed well-nourished male lying on stretcher not appearing to be in acute distress. [] HEENT: Normocephalic. Atraumatic. Extraocular motions are intact. Patient has moist mucous membranes. NECK: Supple. Trachea midline CHEST/LUNGS: Clear to auscultation. There is no respiratory distress noted. HEART/CARDIOVASCULAR: Regular. There is no tachycardia. There is no gallop rub or murmur. Hypotensive ABDOMEN: Abdomen is soft, nontender. Patient has normal bowel sounds. There is no abdominal distention. SKIN: There is no rash. There is no edema. There is no diaphoresis. NEURO: The patient is awake, alert, and oriented. The patient is cooperative. Moves all extremities well. The patient has normal speech MUSCULOSKELETAL: There is no evidence of acute injury. ED Course Vital Signs 09/25/17 20:57 Temperature 97 F L Pulse Rate 78 Respiratory 20 Rate Blood Pressure 86/56 O2 Sat by Pulse 96 Oximetry ED Medical Decision Making - Lab Data Result diagrams: 09/25/17 21:49 09/25/17 21:49 Laboratory Tests 09/25/17 09/25/17 09/25/17 21:49 21:49 21:49 WBC 5.3 RBC 4.49 Hgb 12.1 Hct 37.9 MCV 84 MCH 27 L MCHC 32 RDW 16.0 H Plt Count 231 [place] % (Auto) Coal Handler Add Manual Diff Complete Total Counted 100 Seg Neuts % (Manual) 63.0 Band Neutrophils % 0 Lymphocytes % (Manual) 15.0 Reactive Lymphs % (Man) 0 Monocytes % (Manual) 7.0 Eosinophils % (Manual) 13.0 H Basophils % (Manual) 2.0 H Metamyelocytes % 0 Myelocytes % 0 Promyelocytes % 0 Blast Cells % 0 Nucleated RBC % Not Reportable Seg Neutrophils # Man 3.3 Band Neutrophils # 0.0 Lymphocytes # (Manual) 0.8 L Abs React Lymphs (Man) 0.0 Monocytes # (Manual) 0.4 Eosinophils # (Manual) 0.7 H Basophils # (Manual) 0.1 Metamyelocytes # 0.0 Myelocytes # 0.0 Promyelocytes # 0.0 Blast Cells # 0.0 WBC Morphology Not Reportable Hypersegmented Neuts Not Reportable Hyposegmented Neuts Not Reportable Hypogranular Neuts Not Reportable Smudge Cells Not Reportable Toxic Granulation Not Reportable Toxic Vacuolation Not Reportable Dohle Bodies Not Reportable Pelger-Huet Anomaly Not Reportable Mickey Rods Not Reportable Platelet Estimate Appears normal Clumped Platelets Not Reportable Plt Clumps, EDTA Not Reportable Large Platelets Not Reportable Giant Platelets Not Reportable Platelet Satelliting Not Reportable Plt Morphology Comment Not Reportable RBC Morphology Not Reportable Dimorphic RBCs Not Reportable Polychromasia Not Reportable Hypochromasia Not Reportable Poikilocytosis Few Anisocytosis Not Reportable Microcytosis Not Reportable Macrocytosis Not Reportable Spherocytes Not Reportable Pappenheimer Bodies Not Reportable Sickle Cells Not Reportable Target Cells Not Reportable Tear Drop Cells Not Reportable Ovalocytes Few Helmet Cells Not Reportable Pelletier-[place] Bodies Not Reportable [place] Not Reportable Cornelio Cells Not Reportable Bite Cells Not Reportable Crenated Cell Not Reportable Elliptocytes Not Reportable Acanthocytes (Spur) Not Reportable Rouleaux Not Reportable Hemoglobin C Crystals Not Reportable Schistocytes Not Reportable Malaria parasites Not Reportable Dae Bodies Not Reportable Hem Pathologist Commnt No PT 13.5 INR 0.98 APTT 37.7 H Sodium 135 L Potassium 4.0 Chloride 98.6 Carbon Dioxide 26 Anion Gap 14 BUN 14 Creatinine 1.4 Estimated GFR > 60 BUN/Creatinine Ratio 10 Glucose 83 Lactic Acid Calcium 7.9 L Total Bilirubin 0.20 AST 14 ALT 11 Alkaline Phosphatase 73 Total Creatine Kinase 265 H CK-MB (CK-2) 2.2 CK-MB (CK-2) Rel Index 0.8 Troponin T < 0.010 NT-Pro-B Natriuret Pep 164.9 Total Protein 5.8 L Albumin 3.4 L Albumin/Globulin Ratio 1.4 09/25/17 21:49 WBC RBC Hgb Hct MCV MCH MCHC RDW Plt Count [place] % (Auto) Add Manual Diff Total Counted Seg Neuts % (Manual) Band Neutrophils % Lymphocytes % (Manual) Reactive Lymphs % (Man) Monocytes % (Manual) Eosinophils % (Manual) Basophils % (Manual) Metamyelocytes % Myelocytes % Promyelocytes % Blast Cells % Nucleated RBC % Seg Neutrophils # Man Band Neutrophils # Lymphocytes # (Manual) Abs React Lymphs (Man) Monocytes # (Manual) Eosinophils # (Manual) Basophils # (Manual) Metamyelocytes # Myelocytes # Promyelocytes # Blast Cells # WBC Morphology Hypersegmented Neuts Hyposegmented Neuts Hypogranular Neuts Smudge Cells Toxic Granulation Toxic Vacuolation Dohle Bodies Pelger-Huet Anomaly Mickey Rods Platelet Estimate Clumped Platelets Plt Clumps, EDTA Large Platelets Giant Platelets Platelet Satelliting Plt Morphology Comment RBC Morphology Dimorphic RBCs Polychromasia Hypochromasia Poikilocytosis Anisocytosis Microcytosis Macrocytosis Spherocytes Pappenheimer Bodies Sickle Cells Target Cells Tear Drop Cells Ovalocytes Helmet Cells Pelletier-Mccalla Bodies [place] Cornelio Cells Bite Cells Crenated Cell Elliptocytes Acanthocytes (Spur) Rouleaux Hemoglobin C Crystals Schistocytes Malaria parasites Dae Bodies Hem Pathologist Commnt PT INR APTT Sodium Potassium Chloride Carbon Dioxide Anion Gap BUN Creatinine Estimated GFR BUN/Creatinine Ratio Glucose Lactic Acid 0.60 L Calcium Total Bilirubin AST ALT Alkaline Phosphatase Total Creatine Kinase CK-MB (CK-2) CK-MB (CK-2) Rel Index Troponin T NT-Pro-B Natriuret Pep Total Protein Albumin Albumin/Globulin Ratio - EKG Data -: EKG Interpreted by Al EKG shows normal: sinus rhythm Rate: normal - EKG Data When compared to previous EKG there are: previous EKG unavailable Interpretation: nonspecific ST-T wave yuri (biphasic T waves in leads V2, V3) - Radiology Data Radiology results: report reviewed (CT chest), image reviewed (CT chest) [address] [address] Cat Scan Report Signed Patient: BLAS LIVINGSTON JR MR#: [id number] : 1950 Acct:[id number] Age/Sex: 66 / M ADM Date: 09/25/17 Loc: ED Attending Dr: Ordering Physician: MANSOOR CLINTON MD Date of Service: 09/25/17 Procedure(s): CT angio chest Accession Number(s): [id number] cc: MANSOOR CLINTON MD FINAL REPORT PROCEDURE: CT angiogram chest with contrast. TECHNIQUE: Computerized tomographic angiography of the chest was performed after the IV injection of iodinated nonionic contrast including image processing. The image data was postprocessed using 2-dimensional multiplanar reformatted (MPR) and 3-dimensional (MIP and/or volume rendered) techniques. HISTORY: chest pain, shortness of breath, hypotension. COMPARISON: No prior studies are available for comparison. FINDINGS: The trachea and central bronchi appear normal. There are numerous small cysts in both upper lobes. This is consistent with emphysema. There is an azygos fissure in the right lung apex. There are no pleural effusions. There is mild ectasia of the thoracic aorta. There is no evidence of an aortic dissection. The pulmonary arteries enhance normally. There are no filling defects to indicate pulmonary embolism. There is no mediastinal adenopathy. The heart size is normal. The adrenal glands are not enlarged. The regional skeleton appears intact. IMPRESSION: Emphysema. Azygos fissure. No evidence of pulmonary embolism. Transcribed By: [facility] Dictated By: ASCENCION AYOUB MD Electronically Authenticated By: ASCENCION AYOUB MD Signed Date/Time: 09/25/172347 DD/ 47 TD/TT: 09/25/172347 - Differential Diagnosis pneumonia, PE, sepsis, acute bronchitis, dehydration Critical care attestation.: If time is entered above; I have spent that time in minutes in the direct care of this critically ill patient, excluding procedure time. ED Disposition Clinical Impression: Chest pain, Biphasic anterior T wave inversion, Dizziness, Transient hypotension Disposition: OP ADMIT IP TO THIS HOSP Is pt being admited?: Yes Does the pt Need Aspirin: Yes Condition: Fair Instructions: Chest Pain (ED) Referrals: PRIMARY CARE, [Primary Care Provider] - 3-5 Days Time of Disposition: 00:15 (hospitalist paged (Dr Townsend))
[2017-09-25] MEDS ORDERED: NACL 0.9% 1000 ML 2,000 ML IV ONE (22:04)
[2017-09-25 22:11] LABS: Hematocrit 37.9 % (35.5-45.6); Hemoglobin 12.1 gm/dl (11.8-15.2); Mean Corpuscular HGB Conc 32 % (32-34); Mean Corpuscular Hemoglobin 27 pg (28-32); Mean Corpuscular Volume 84 fl (84-94); Platelet Count 231 K/mm3 (140-440); Red Blood Count 4.49 M/mm3 (3.65-5.03)
[2017-09-25 22:18] LABS: INR 0.98 (0.87-1.13)
[2017-09-25 22:19] LABS: Partial Thromboplastin Time 37.7 Sec. (24.2-36.6)
[2017-09-25 22:22] LABS: Creatine Kinase MB 2.2 ng/mL (0.0-4.0)
[2017-09-25 22:25] LABS: Alanine Aminotransferase 11 units/L (7-56); Albumin 3.4 g/dL (3.9-5); BUN/Creatinine Ratio 10; Blood Urea Nitrogen 14 mg/dL (9-20); Calcium 7.9 mg/dL (8.4-10.2); Hemolysis Index 2
[2017-09-25 22:47] LABS: Total Cells Counted 100
[2017-09-25 22:48] LABS: Ovalocytes Few; Poikilocytosis Few
[2017-09-25] MEDS ORDERED: NACL 0.9% 1000 ML 1,000 ML IV ONE (23:28)
--- NOTE | 2017-09-25 23:54 | Cat Scan Report ---
FINAL REPORT PROCEDURE: CT angiogram chest with contrast. TECHNIQUE: Computerized tomographic angiography of the chest was performed after the IV injection of iodinated nonionic contrast including image processing. The image data was postprocessed using 2-dimensional multiplanar reformatted (MPR) and 3-dimensional (MIP and/or volume rendered) techniques. HISTORY: chest pain, shortness of breath, hypotension. COMPARISON: No prior studies are available for comparison. FINDINGS: The trachea and central bronchi appear normal. There are numerous small cysts in both upper lobes. This is consistent with emphysema. There is an azygos fissure in the right lung apex. There are no pleural effusions. There is mild ectasia of the thoracic aorta. There is no evidence of an aortic dissection. The pulmonary arteries enhance normally. There are no filling defects to indicate pulmonary embolism. There is no mediastinal adenopathy. The heart size is normal. The adrenal glands are not enlarged. The regional skeleton appears intact. IMPRESSION: Emphysema. Azygos fissure. No evidence of pulmonary embolism.
[2017-09-26] MEDS ORDERED: ASPIRIN PO ONE (00:16)
[2017-09-26 00:20] LABS: Amorphous Crystals,Urine Few; Bacteria,Urine 1+ /HPF (Negative); Bilirubin,Urine NEG (Negative); Blood,Urine SM (Negative); Color,Urine Yellow (Yellow); Protein,Urine <15 mg/dL mg/dL (Negative); Urobilinogen,Urine < 2.0 mg/dL (<2.0)
[2017-09-26] MEDS ORDERED: NACL 0.9% 1000 ML 1,000 ML IV ONE (01:35)
[2017-09-26] MEDS ORDERED: SODIUM CHLORIDE FLUSH SYRINGE 10 ML IV PRN (01:51)
[2017-09-26] MEDS ORDERED: PERCOCET 5/325 PO PRN (01:51)
[2017-09-26] MEDS ORDERED: ZOFRAN IV PRN (01:51)
[2017-09-26] MEDS ORDERED: TYLENOL PO PRN (01:51)
[2017-09-26] MEDS ORDERED: NACL 0.9% 1000 ML 1,000 ML IV SCH (02:00)
--- NOTE | 2017-09-26 03:05 | History and Physical Report ---
History of Present Illness Date of examination: 09/26/17 Date of admission: 09/26/17 02:17 Chief complaint: Lightheadedness History of present illness: Patient is a 56-year-old -[place] male with history of PTSD who presented to the ED on account of 1 day history of lightheadedness. He has an associated cough productive of whitish sputum, pleuritic chest pain, runny nose and shortness of breath. He denies headaches, nausea, vomiting, fever, chills, sore throat, palpitation, leg swelling, orthopnea or PND. No reported prior history of stress test. In the ED, patient's blood pressure subsequently trended down. He has been admitted previously for low blood pressure, however he continues to take a low dose lisinopril. Past History Past Medical History: seizures, other (PTSD, depression) Past Surgical History: Other (brain surgery for meningioma) Social history: smoking (for more than 40 years. Admits to occasional alcohol use. Admits to smoking crack cocaine) Family history: other (reviewed and noncontributory) Medications and Allergies Allergies Allergy/AdvReac Type Severity Reaction Status Date / Time No Known Allergies Allergy Verified 09/18/14 20:27 Home Medications Medication Instructions Recorded Confirmed Last Taken Type levETIRAcetam [Keppra TAB] 500 mg PO BID #60 tablet 09/20/14 08/02/17 10/20/14 Rx Citalopram Hydrobromide [celeXA] 40 mg PO DAILY 11/25/15 08/02/17 Unknown History Cholecalciferol (Vitamin D3) 1,000 unit PO DAILY 08/02/17 08/02/17 Unknown History [Vitamin D3] Finasteride [Proscar] 5 mg PO DAILY 08/02/17 08/02/17 Unknown History Tamsulosin HCl [Flomax] 0.4 mg PO DAILY 08/02/17 08/02/17 Unknown History Lisinopril [Zestril TAB] 2.5 mg PO QDAY #30 tab 08/05/17 Unknown Rx Active Meds: Active Medications Acetaminophen (Tylenol) 650 mg PO Q4H PRN PRN Reason: Pain MILD(1-3)/Fever >100.5/GUNTER Sodium Chloride (Nacl 0.9% 1000 Ml) 1,000 mls @ 125 mls/hr IV DIRECT NETTA Ondansetron HCl (Zofran) 4 mg IV Q8H PRN PRN Reason: Nausea And Vomiting Oxycodone/Acetaminophen (Percocet 5/325) 1 tab PO Q6H PRN PRN Reason: Pain, Moderate (4-6) Sodium Chloride (Sodium Chloride Flush Syringe 10 Ml) 10 ml IV BID NETTA Sodium Chloride (Sodium Chloride Flush Syringe 10 Ml) 10 ml IV PRN PRN PRN Reason: LINE FLUSH Review of Systems All systems: negative (except as documented in the HPI, all other systems were reviewed and negative) Exam - Constitutional Vitals: Temp Pulse Resp BP Pulse Ox 97.4 F L 66 18 112/52 97 09/25/17 22:10 09/26/17 02:15 09/26/17 02:15 09/26/17 02:30 09/26/17 02:15 General appearance: Present: no acute distress - EENT Eyes: Present: PERRL, EOM intact ENT: hearing intact, clear oral mucosa - Neck Neck: Present: supple, normal ROM - Respiratory Respiratory effort: normal Respiratory: bilateral: CTA - Cardiovascular Rhythm: regular Heart Sounds: Present: S1 & S2. Absent: rub, click - Extremities Extremities: pulses symmetrical, No edema - Abdominal General gastrointestinal: Present: soft, non-tender, non-distended, normal bowel sounds - Integumentary Integumentary: Present: clear, warm, dry - Musculoskeletal Musculoskeletal: gait normal, strength equal bilaterally - Neurologic Neurologic: CNII-XII intact, moves all extremities Results - Labs CBC & Chem 7: 09/25/17 21:49 09/25/17 21:49 Labs: Laboratory Last Values WBC 5.3 K/mm3 (4.5-11.0) 09/25/17 21:49 RBC 4.49 M/mm3 (3.65-5.03) 09/25/17 21:49 Hgb 12.1 gm/dl (11.8-15.2) 09/25/17 21:49 Hct 37.9 % (35.5-45.6) 09/25/17 21:49 MCV 84 fl (84-94) 09/25/17 21:49 MCH 27 pg (28-32) L 09/25/17 21:49 MCHC 32 % (32-34) 09/25/17 21:49 RDW 16.0 % (13.2-15.2) H 09/25/17 21:49 Plt Count 231 K/mm3 (140-440) 09/25/17 21:49 [place] % (Auto) Tunnel Heading Supervisor 09/25/17 21:49 Add Manual Diff Complete 09/25/17 21:49 Total Counted 100 09/25/17 21:49 Seg Neuts % (Manual) 63.0 % (40.0-70.0) 09/25/17 21:49 Band Neutrophils % 0 % 09/25/17 21:49 Lymphocytes % (Manual) 15.0 % (13.4-35.0) 09/25/17 21:49 Reactive Lymphs % (Man) 0 % 09/25/17 21:49 Monocytes % (Manual) 7.0 % (0.0-7.3) 09/25/17 21:49 Eosinophils % (Manual) 13.0 % (0.0-4.3) H 09/25/17 21:49 Basophils % (Manual) 2.0 % (0.0-1.8) H 09/25/17 21:49 Metamyelocytes % 0 % 09/25/17 21:49 Myelocytes % 0 % 09/25/17 21:49 Promyelocytes % 0 % 09/25/17 21:49 Blast Cells % 0 % 09/25/17 21:49 Nucleated RBC % Not Reportable 09/25/17 21:49 Seg Neutrophils # Man 3.3 K/mm3 (1.8-7.7) 09/25/17 21:49 Band Neutrophils # 0.0 K/mm3 09/25/17 21:49 Lymphocytes # (Manual) 0.8 K/mm3 (1.2-5.4) L 09/25/17 21:49 Abs React Lymphs (Man) 0.0 K/mm3 09/25/17 21:49 Monocytes # (Manual) 0.4 K/mm3 (0.0-0.8) 09/25/17 21:49 Eosinophils # (Manual) 0.7 K/mm3 (0.0-0.4) H 09/25/17 21:49 Basophils # (Manual) 0.1 K/mm3 (0.0-0.1) 09/25/17 21:49 Metamyelocytes # 0.0 K/mm3 09/25/17 21:49 Myelocytes # 0.0 K/mm3 09/25/17 21:49 Promyelocytes # 0.0 K/mm3 09/25/17 21:49 Blast Cells # 0.0 K/mm3 09/25/17 21:49 WBC Morphology Not Reportable 09/25/17 21:49 Hypersegmented Neuts Not Reportable 09/25/17 21:49 Hyposegmented Neuts Not Reportable 09/25/17 21:49 Hypogranular Neuts Not Reportable 09/25/17 21:49 Smudge Cells Not Reportable 09/25/17 21:49 Toxic Granulation Not Reportable 09/25/17 21:49 Toxic Vacuolation Not Reportable 09/25/17 21:49 Dohle Bodies Not Reportable 09/25/17 21:49 Pelger-Huet Anomaly Not Reportable 09/25/17 21:49 Mickey Rods Not Reportable 09/25/17 21:49 Platelet Estimate Appears normal 09/25/17 21:49 Clumped Platelets Not Reportable 09/25/17 21:49 Plt Clumps, EDTA Not Reportable 09/25/17 21:49 Large Platelets Not Reportable 09/25/17 21:49 Giant Platelets Not Reportable 09/25/17 21:49 Platelet Satelliting Not Reportable 09/25/17 21:49 Plt Morphology Comment Not Reportable 09/25/17 21:49 RBC Morphology Not Reportable 09/25/17 21:49 Dimorphic RBCs Not Reportable 09/25/17 21:49 Polychromasia Not Reportable 09/25/17 21:49 Hypochromasia Not Reportable 09/25/17 21:49 Poikilocytosis Few 09/25/17 21:49 Anisocytosis Not Reportable 09/25/17 21:49 Microcytosis Not Reportable 09/25/17 21:49 Macrocytosis Not Reportable 09/25/17 21:49 Spherocytes Not Reportable 09/25/17 21:49 Pappenheimer Bodies Not Reportable 09/25/17 21:49 Sickle Cells Not Reportable 09/25/17 21:49 Target Cells Not Reportable 09/25/17 21:49 Tear Drop Cells Not Reportable 09/25/17 21:49 Ovalocytes Few 09/25/17 21:49 Helmet Cells Not Reportable 09/25/17 21:49 Pelletier-Mathis Bodies Not Reportable 09/25/17 21:49 [place] Rings Not Reportable 09/25/17 21:49 Cornelio Cells Not Reportable 09/25/17 21:49 Bite Cells Not Reportable 09/25/17 21:49 Crenated Cell Not Reportable 09/25/17 21:49 Elliptocytes Not Reportable 09/25/17 21:49 Acanthocytes (Spur) Not Reportable 09/25/17 21:49 Rouleaux Not Reportable 09/25/17 21:49 Hemoglobin C Crystals Not Reportable 09/25/17 21:49 Schistocytes Not Reportable 09/25/17 21:49 Malaria parasites Not Reportable 09/25/17 21:49 Dae Bodies Not Reportable 09/25/17 21:49 Hem Pathologist Commnt No 09/25/17 21:49 PT 13.5 Sec. (12.2-14.9) 09/25/17 21:49 INR 0.98 (0.87-1.13) 09/25/17 21:49 APTT 37.7 Sec. (24.2-36.6) H 09/25/17 21:49 Sodium 135 mmol/L (137-145) L 09/25/17 21:49 Potassium 4.0 mmol/L (3.6-5.0) 09/25/17 21:49 Chloride 98.6 mmol/L (98-107) 09/25/17 21:49 Carbon Dioxide 26 mmol/L (22-30) 09/25/17 21:49 Anion Gap 14 mmol/L 09/25/17 21:49 BUN 14 mg/dL (9-20) 09/25/17 21:49 Creatinine 1.4 mg/dL (0.8-1.5) 09/25/17 21:49 Estimated GFR > 60 ml/min 09/25/17 21:49 BUN/Creatinine Ratio 10 % 09/25/17 21:49 Glucose 83 mg/dL (75-100) 09/25/17 21:49 Lactic Acid 1.20 mmol/L (0.7-2.0) 09/26/17 00:55 Calcium 7.9 mg/dL (8.4-10.2) L 09/25/17 21:49 Total Bilirubin 0.20 mg/dL (0.1-1.2) 09/25/17 21:49 AST 14 units/L (5-40) 09/25/17 21:49 ALT 11 units/L (7-56) 09/25/17 21:49 Alkaline Phosphatase 73 units/L (35-129) 09/25/17 21:49 Total Creatine Kinase 265 units/L (55-170) H 09/25/17 21:49 CK-MB (CK-2) 2.2 ng/mL (0.0-4.0) 09/25/17 21:49 CK-MB (CK-2) Rel Index 0.8 (0-4) 09/25/17 21:49 Troponin T < 0.010 ng/mL (0.00-0.029) 09/25/17 21:49 NT-Pro-B Natriuret Pep 164.9 pg/mL (0-900) 09/25/17 21:49 Total Protein 5.8 g/dL (6.3-8.2) L 09/25/17 21:49 Albumin 3.4 g/dL (3.9-5) L 09/25/17 21:49 Albumin/Globulin Ratio 1.4 % 09/25/17 21:49 Urine Color Yellow (Yellow) 09/25/17 23:38 Urine Turbidity Clear (Clear) 09/25/17 23:38 Urine pH 5.0 (5.0-7.0) 09/25/17 23:38 Ur Specific [place] 1.005 (1.003-1.030) 09/25/17 23:38 Urine Protein <15 mg/dl mg/dL (Negative) 09/25/17 23:38 Urine Glucose (UA) Neg mg/dL (Negative) 09/25/17 23:38 Urine Ketones Neg mg/dL (Negative) 09/25/17 23:38 Urine Blood Sm (Negative) 09/25/17 23:38 Urine Nitrite Neg (Negative) 09/25/17 23:38 Urine Bilirubin Neg (Negative) 09/25/17 23:38 Urine Urobilinogen < 2.0 mg/dL (<2.0) 09/25/17 23:38 Ur Leukocyte Esterase Neg (Negative) 09/25/17 23:38 Urine WBC (Auto) 1.0 /HPF (0.0-6.0) 09/25/17 23:38 Urine RBC (Auto) 1.0 /HPF (0.0-6.0) 09/25/17 23:38 U Epithel Cells (Auto) 1.0 /HPF (0-13.0) 09/25/17 23:38 Urine Bacteria (Auto) 1+ /HPF (Negative) 09/25/17 23:38 Amorphous Crystals Few 09/25/17 23:38 Assessment and Plan Assessment and plan: Hypotension, probably secondary to antihypertensive use -Patient's BP responded to IV fluid boluses -Will continue maintenance IV fluid with blood pressure monitoring -Avoid antihypertensives and sedatives Atypical chest pain, probably secondary to acute bronchitis -Will continue serial troponin level monitoring -Will order NST for further evaluation -We will place patient on anti-tussives and PRN duonebs. PTSD and depression -Stable Seizure disorder -Will resume his home [facility] Disposition: Patient to be discharged if his stress test is negative and his blood pressure remains stable
[2017-09-26] MEDS: PROVENTIL IH SCH ×3 (04:50→13:55)
[2017-09-26 06:07] LABS: Chol/HDL Ratio 1.56 %
[2017-09-26] MEDS ORDERED: LEXISCAN IV ONE ×2 (08:06→08:21)
[2017-09-26] MEDS ORDERED: MUCINEX ER PO SCH (10:00)
[2017-09-26] MEDS ORDERED: SODIUM CHLORIDE FLUSH SYRINGE 10 ML IV SCH (10:00)
[2017-09-26] MEDS ORDERED: KEPPRA PO SCH (10:00)
[2017-09-26] MEDS ORDERED: BABY ASPIRIN PO SCH (10:00)
--- NOTE | 2017-09-26 12:14 | Discharge Summary ---
Providers - Providers Date of Admission: 09/26/17 02:17 Date of discharge: 09/26/17 Attending physician: DIVYA GRAMAJO Primary care physician: IAP DISPLAYS ANALYST Hospitalization Reason for admission: lightheadedness Condition: Fair Hospital course: Discharge diagnosis and management: Hypotension, probably secondary to antihypertensive use -Patient's BP responded to IV fluid boluses and blood pressure remained stable -Avoided antihypertensives and sedatives Atypical chest pain, probably secondary to acute bronchitis -Monitored with serial troponin level and that were normal -Had a recent normal stress test, likely from GERD PTSD and depression -Stable Seizure disorder -resumed his home [place] Disposition: DC-01 TO HOME OR SELFCARE Time spent for discharge: 32 minutes Core Measure Documentation - Palliative Care Palliative Care/ Comfort Measures: Not Applicable - Core Measures Any of the following diagnoses?: none Exam - Constitutional Vitals: Temp Pulse Resp BP Pulse Ox 97.5 F L 73 18 126/77 97 09/26/17 07:36 09/26/17 07:51 09/26/17 07:51 09/26/17 07:36 09/26/17 07:38 General appearance: Present: no acute distress, well-nourished - EENT Eyes: Present: PERRL ENT: hearing intact, clear oral mucosa - Neck Neck: Present: supple, normal ROM - Respiratory Respiratory effort: normal Respiratory: bilateral: CTA - Cardiovascular Heart Sounds: Present: S1 & S2. Absent: rub, click - Extremities Extremities: pulses symmetrical, No edema Peripheral Pulses: within normal limits - Abdominal General gastrointestinal: Present: soft, non-tender, non-distended, normal bowel sounds - Integumentary Integumentary: Present: clear, warm, dry - Musculoskeletal Musculoskeletal: gait normal, strength equal bilaterally - Psychiatric Psychiatric: appropriate mood/affect, intact judgment & insight - Neurologic Neurologic: CNII-XII intact, moves all extremities Plan Activity: advance as tolerated Weight Bearing Status: Non-Weight Bearing Diet: low fat, low salt Follow up with: PRIMARY CARE, [Primary Care Provider] - 3-5 Days Prescriptions: Aspirin [Aspirin BABY CHEW TAB] 81 mg PO QDAY #30 tab.chew
[2017-09-26 16:39] VITALS: BP 136/81
== END 2017-09-26 17:00 | disposition home or self-care (01) | DRG 203 ==
LOC: ED 20:20 → 3A 09-26 02:17
PROVIDERS: ADMIT Internal Medicine; ATTEND Internal Medicine
DX: J20.9 Acute bronchitis, unspecified (principal); I95.9 Hypotension, unspecified; R07.9 Chest pain, unspecified; F17.200 Nicotine dependence, unspecified, uncomplicated; F12.90 Cannabis use, unspecified, uncomplicated; F32.9 Major depressive disorder, single episode, unspecified; F43.10 Post-traumatic stress disorder, unspecified; G40.909 Epilepsy, unspecified, not intractable, without status epilepticus; T46.5X5A Adverse effect of other antihypertensive drugs, initial encounter; Z79.899 Other long term (current) drug therapy; Y92.89 Other specified places as the place of occurrence of the external cause
CPT/HCPCS: 36415; 71275; 80053; 80061; 81001; 82140; 82550; 82553; 83880; 84484; 85007; 85025; 85610; 85730; 87040; 87086; 93005; 93010; 94640; J2785; J7030; Q9967

== ENCOUNTER 2017-10-25 08:08 | Emergency (ER) | payer OTHER ==
[2017-10-25 09:13] LABS: Basophils # (Auto) 0.1 K/mm3 (0.0-0.1); Basophils % (Auto) 0.9 % (0.0-1.8); Eosinophils # (Auto) 0.6 K/mm3 (0.0-0.4); Eosinophils % (Auto) 6.7 % (0.0-4.3); Hematocrit 40.7 % (35.5-45.6); Hemoglobin 13.1 gm/dl (11.8-15.2); Lymphocytes # (Auto) 1.3 K/mm3 (1.2-5.4); Lymphocytes % (Auto) 15.5 % (13.4-35.0); Mean Corpuscular HGB Conc 32 % (32-34); Mean Corpuscular Hemoglobin 27 pg (28-32); Mean Corpuscular Volume 84 fl (84-94); Monocytes # (Auto) 0.8 K/mm3 (0.0-0.8); Monocytes % (Auto) 9.1 % (0.0-7.3); Platelet Count 307 K/mm3 (140-440); Red Blood Count 4.83 M/mm3 (3.65-5.03); Red Cell Distribution Width 15.6 % (13.2-15.2)
[2017-10-25 09:34] LABS: Creatine Kinase MB 1.2 ng/mL (0.0-4.0)
[2017-10-25 09:35] LABS: BUN/Creatinine Ratio 11; Blood Urea Nitrogen 15 mg/dL (9-20); Calcium 8.6 mg/dL (8.4-10.2); Hemolysis Index 2
[2017-10-25] MEDS ORDERED: DUONEB *Not for PRN Use IH ONE (09:56)
[2017-10-25] MEDS ORDERED: BABY ASPIRIN PO ONE (09:57)
[2017-10-25] MEDS ORDERED: DELTASONE PO ONE (09:57)
[2017-10-25 10:04] VITALS: BP 139/85
--- NOTE | 2017-10-25 10:05 | Emergency Department Report ---
ED Chest Pain HPI - General Chief Complaint: Dyspnea/Respdistress Stated Complaint: DIFFICULTY BREATHING Time Seen by Provider: 10/25/17 09:52 Source: patient Mode of arrival: Ambulatory Limitations: No Limitations - History of Present Illness Initial Comments: 66-year-old male presents to the emergency department after waking up this morning with some coughing and shortness of breath, wheezing and some mild right-sided chest discomfort. He has a history of COPD and some kind of "heart condition" that he cannot explain. He gets with his primary care and cardiology done through the [facility]. However he was here and admitted in July and had a negative stress test and cardiology evaluation at that time. He is not oxygen dependent. He is a former smoker and denies any illicit drug use or abuse. He used his rescue inhaler this morning without much relief. However he says he does feel improved since being in the emergency department. No recent travel or sick contacts at home. He denies any fever, diaphoresis, nausea, vomiting, back pain. There is no radiation of the chest pain. It is 3 out of 10 in intensity. - Related Data Home Medications Medication Instructions Recorded Confirmed Last Taken Citalopram Hydrobromide [celeXA] 40 mg PO DAILY 11/25/15 09/26/17 Unknown Cholecalciferol (Vitamin D3) 1,000 unit PO DAILY 08/02/17 09/26/17 Unknown [Vitamin D3] Finasteride [Proscar] 5 mg PO DAILY 08/02/17 09/26/17 Unknown Tamsulosin HCl [Flomax] 0.4 mg PO DAILY 08/02/17 09/26/17 Unknown Previous Rx's Medication Instructions Recorded Last Taken Type levETIRAcetam [Keppra TAB] 500 mg PO BID #60 tablet 09/20/14 10/20/14 Rx Aspirin [Aspirin BABY CHEW TAB] 81 mg PO QDAY #30 tab.chew 09/26/17 Unknown Rx predniSONE [Deltasone] 20 mg PO QDAY #4 tab 10/25/17 Unknown Rx Allergies Allergy/AdvReac Type Severity Reaction Status Date / Time No Known Allergies Allergy Verified 10/25/17 08:47 Heart Score - HEART Score History: Slightly suspicious EKG: Normal Age: 45-65 Risk factors: 1-2 risk factors Troponin: < normal limit HEART Score: 2 - Critical Actions Critical Actions: 0-3 pts:0.9-1.7%risk of adverse cardiac event.Candidate for discharge ED Review of Systems ROS: Stated complaint: DIFFICULTY BREATHING Other details as noted in HPI Comment: All other systems reviewed and negative Constitutional: denies: chills, fever Eyes: denies: eye pain, eye discharge, vision change ENT: denies: ear pain, throat pain Respiratory: cough, shortness of breath, wheezing Cardiovascular: chest pain. denies: edema Gastrointestinal: denies: abdominal pain, nausea, diarrhea Genitourinary: denies: urgency, dysuria Musculoskeletal: denies: back pain, joint swelling, arthralgia Skin: denies: rash, lesions Neurological: denies: headache, weakness, paresthesias ED Past Medical Hx - Past Medical History Hx Hypertension: Yes Hx Heart Attack/AMI: No Hx Congestive Heart Failure: No Hx Diabetes: No Hx Deep Vein Thrombosis: No Hx Seizures: Yes Hx Asthma: No Hx COPD: No Additional medical history: 3.5 cm frontal mass secondary to meningioma seen on MRI 09/18/2014 (surgically removed) - Surgical History Hx Coronary Stent: No Hx Pacemaker: No Hx Internal Defibrillator: No Hx Appendectomy: Yes Additional Surgical History: Brain sx - Social History Smoking Status: Never Smoker Substance Use Type: None - Medications Home Medications: Home Medications Medication Instructions Recorded Confirmed Last Taken Type levETIRAcetam [Keppra TAB] 500 mg PO BID #60 tablet 09/20/14 09/26/17 10/20/14 Rx Citalopram Hydrobromide [celeXA] 40 mg PO DAILY 11/25/15 09/26/17 Unknown History Cholecalciferol (Vitamin D3) 1,000 unit PO DAILY 08/02/17 09/26/17 Unknown History [Vitamin D3] Finasteride [Proscar] 5 mg PO DAILY 08/02/17 09/26/17 Unknown History Tamsulosin HCl [Flomax] 0.4 mg PO DAILY 08/02/17 09/26/17 Unknown History Aspirin [Aspirin BABY CHEW TAB] 81 mg PO QDAY #30 tab.chew 09/26/17 Unknown Rx predniSONE [Deltasone] 20 mg PO QDAY #4 tab 10/25/17 Unknown Rx ED Physical Exam - General Limitations: No Limitations - Other Other exam information: GENERAL: The patient is well-developed well-nourished. HENT: Normocephalic. Atraumatic. Patient has moist mucous membranes. EYES: Extraocular motions are intact. Pupils equal reactive to light bilaterally. NECK: Supple. Trachea is midline. CHEST/LUNGS: Clear to auscultation. There is no respiratory distress noted. HEART/CARDIOVASCULAR: Regular. There is no tachycardia. There is no murmur. ABDOMEN: Abdomen is soft, nontender. Patient has normal bowel sounds. There is no abdominal distention. SKIN: Skin is warm and dry. NEURO: The patient is awake, alert, and oriented. The patient is cooperative. The patient has no focal neurologic deficits. The patient has normal speech. MUSCULOSKELETAL: There is no tenderness or deformity. There is no limitation range of motion. There is no evidence of acute injury. ED Course Vital Signs 10/25/17 10/25/17 08:47 10:03 Temperature 97.6 F Pulse Rate 75 63 Respiratory 20 16 Rate Blood Pressure 139/85 [Right] O2 Sat by Pulse 95 97 Oximetry KATIE score - Katie Score Age > 65: (0) No Aspirin use within the Past 7 Days: (0) No 3 or more CAD Risk Factors: (0) No 2 or more Angina events in past 24 hrs: (0) No Known CAD with more than 50% Stenosis: (0) No Elevated Cardiac Markers: (0) No ST Deviation Greater than 0.5mm: (0) No KATIE Score: 0 ED Medical Decision Making - Lab Data Result diagrams: 10/25/17 08:59 10/25/17 08:59 - EKG Data -: EKG Interpreted by Me EKG shows normal: sinus rhythm, axis, intervals, QRS complexes, ST-T waves Rate: normal - EKG Data When compared to previous EKG there are: no significant change Interpretation: normal EKG, unchanged when compared t (09/26/17) - Radiology Data Radiology results: image reviewed interpreted by me: There is some hyperinflation of the lungs and flattening of the diaphragms consistent with his COPD. No obvious pneumonia or pleural effusions. - Medical Decision Making Patient presents with some shortness of breath and mild right-sided chest tightness since this morning. His labs and an unremarkable including negative troponins 2 and a negative d-dimer. Chest x-ray does not show any acute process. EKG does not show any signs of ST elevation MS, ischemia or dysrhythmia. On top of all this, patient had a negative stress test here at [facility] 3 months ago. He has good follow-up with primary care and cardiology through the [facility]. He was given a breathing treatment and upon reevaluation he says he is feeling much better and asking for discharge home. Vital signs stable throughout his ED course including being afebrile. He was encouraged to return to the emergency Department with any worsening of symptoms or any acute distress. - Differential Diagnosis MS, PE, COPD, asthma, pneumonia Critical Care Time: No Critical care attestation.: If time is entered above; I have spent that time in minutes in the direct care of this critically ill patient, excluding procedure time. ED Disposition Clinical Impression: Bronchospasm, Atypical chest pain Disposition: DC-01 TO HOME OR SELFCARE Is pt being admited?: No Condition: Stable Instructions: Chest Pain (ED), Bronchospasm (ED) Additional Instructions: Please follow-up with your primary care physician and oxyacetylene cutter in the next few days. Return to the emergency Department with any worsening of your symptoms or any acute distress. Prescriptions: predniSONE [Deltasone] 20 mg PO QDAY #4 tab Referrals: PRIMARY CARE, [Primary Care Provider] - [facility] Time of Disposition: 12:22
--- NOTE | 2017-10-28 10:09 | XRay Report ---
CHEST 2 VIEWS INDICATION: Shortness of breath. COMPARISON: 08/02/2017 FINDINGS: PA and lateral chest radiographs again demonstrate normal cardiomediastinal silhouette with clear, slightly hyperexpanded lungs. No pleural effusions or CHF. An azygous lobe incidentally again seen. Intact bones. CONCLUSION: COPD without acute chest process, as described. Please note that this exam is now made available to me for interpretation. Thank you for the opportunity to participate in this patient's care.
== END 2017-10-25 12:30 | disposition home or self-care (01) ==
LOC: ED 08:08
DX: J98.01 Acute bronchospasm (principal); R07.89 Other chest pain; I10 Essential (primary) hypertension; Z90.49 Acquired absence of other specified parts of digestive tract; Z79.82 Long term (current) use of aspirin
CPT/HCPCS: 36415; 71046; 80048; 82550; 82553; 84484; 85025; 85379; 93005; 93010; 94640; 99284; J7512

== ENCOUNTER 2019-04-17 16:09 | Inpatient (IN) | payer MEDICARE ==
[2019-04-17] MEDS ORDERED: IPRATROPIUM 0.02% NEBU 2.5 ML IH ONE ×2 (16:27)
[2019-04-17] MEDS ORDERED: SODIUM CHLORIDE 0.9% 500 ML 500 ML IV ONE (16:27)
[2019-04-17] MEDS ORDERED: ALBUTEROL 2.5 MG/3 ML NEBU IH ONE ×2 (16:27)
[2019-04-17] MEDS ORDERED: dexAMETHasone 20 MG/5 ML VIAL IV ONE (16:27)
[2019-04-17] MEDS ORDERED: MAGNESIUM SULFATE 1 GM in SODIUM CHLORIDE 0.9% 50 ML IV ONE (16:28)
--- NOTE | 2019-04-17 16:38 | Emergency Department Report ---
ED Shortness of Breath HPI - General Chief Complaint: Dyspnea/Respdistress Stated Complaint: MIROSLAVA Time Seen by Provider: 04/17/19 16:26 Source: patient Mode of arrival: Wheelchair Limitations: No Limitations - History of Present Illness Initial Comments: Patient is a 68-year-old male with past medical history COPD hypertension and seizures and who is a former smoker who is here secondary to having shortness of breath. Patient was found to be hypoxic in the mid 80s first pulse ox. Patient was been wheezing. Patient took 2 treatments today with no improvement. He denies chest pain fevers or chills. He has had a cough has been worsening over the last 2-3 days. - Related Data Home Medications Medication Instructions Recorded Confirmed Last Taken Citalopram Hydrobromide [celeXA] 40 mg PO DAILY 11/25/15 09/26/17 Unknown Cholecalciferol (Vitamin D3) 1,000 unit PO DAILY 08/02/17 09/26/17 Unknown [Vitamin D3] Finasteride [Proscar] 5 mg PO DAILY 08/02/17 09/26/17 Unknown Tamsulosin HCl [Flomax] 0.4 mg PO DAILY 08/02/17 09/26/17 Unknown Previous Rx's Medication Instructions Recorded Last Taken Type levETIRAcetam [Keppra TAB] 500 mg PO BID #60 tablet 09/20/14 10/20/14 Rx Aspirin [Aspirin BABY CHEW TAB] 81 mg PO QDAY #30 tab.chew 09/26/17 Unknown Rx predniSONE [Deltasone] 20 mg PO QDAY #4 tab 10/25/17 Unknown Rx Allergies Allergy/AdvReac Type Severity Reaction Status Date / Time No Known Allergies Allergy Verified 10/25/17 08:47 ED Review of Systems ROS: Stated complaint: MIROSLAVA Other details as noted in HPI Comment: All other systems reviewed and negative ED Past Medical Hx - Past Medical History Previous Medical History?: Yes Hx Hypertension: Yes Hx Heart Attack/AMI: No Hx Congestive Heart Failure: No Hx Diabetes: No Hx Deep Vein Thrombosis: No Hx Seizures: Yes Hx Asthma: No Hx COPD: Yes Additional medical history: 3.5 cm frontal mass secondary to meningioma seen on MRI 09/18/2014 (surgically removed) - Surgical History Past Surgical History?: Yes Hx Coronary Stent: No Hx Pacemaker: No Hx Internal Defibrillator: No Hx Appendectomy: Yes Additional Surgical History: Brain sx - Social History Smoking Status: Former Smoker Substance Use Type: None - Medications Home Medications: Home Medications Medication Instructions Recorded Confirmed Last Taken Type levETIRAcetam [Keppra TAB] 500 mg PO BID #60 tablet 09/20/14 09/26/17 10/20/14 Rx Citalopram Hydrobromide [celeXA] 40 mg PO DAILY 11/25/15 09/26/17 Unknown History Cholecalciferol (Vitamin D3) 1,000 unit PO DAILY 08/02/17 09/26/17 Unknown History [Vitamin D3] Finasteride [Proscar] 5 mg PO DAILY 08/02/17 09/26/17 Unknown History Tamsulosin HCl [Flomax] 0.4 mg PO DAILY 08/02/17 09/26/17 Unknown History Aspirin [Aspirin BABY CHEW TAB] 81 mg PO QDAY #30 tab.chew 09/26/17 Unknown Rx predniSONE [Deltasone] 20 mg PO QDAY #4 tab 10/25/17 Unknown Rx ED Physical Exam - General Limitations: No Limitations General appearance: alert, in no apparent distress - Head Head exam: Present: atraumatic, normocephalic - Eye Eye exam: Present: normal appearance, PERRL, EOMI - ENT ENT exam: Present: mucous membranes moist. Absent: normal exam, normal orophraynx - Neck Neck exam: Present: normal inspection - Respiratory Respiratory exam: Present: respiratory distress, wheezes, accessory muscle use, prolonged expiratory. Absent: normal lung sounds bilaterally, rales, rhonchi - Cardiovascular Cardiovascular Exam: Present: regular rate, normal rhythm, normal heart sounds. Absent: systolic murmur, diastolic murmur, rubs, gallop - GI/Abdominal GI/Abdominal exam: Present: soft, normal bowel sounds. Absent: distended, tenderness, guarding, rebound - Rectal Rectal exam: Present: deferred - Extremities Exam Extremities exam: Present: normal inspection - Back Exam Back exam: Present: normal inspection - Neurological Exam Neurological exam: Present: alert, oriented X3 - Psychiatric Psychiatric exam: Present: normal affect, normal mood - Skin Skin exam: Present: warm, dry, intact, normal color. Absent: rash ED Course Vital Signs 04/17/19 04/17/19 04/17/19 16:12 16:16 16:30 Temperature Pulse Rate 83 95 H Pulse Rate [ Bilateral Throughout] Respiratory 27 H 28 H Rate Respiratory Rate [Bilateral Throughout] Blood Pressure 189/108 189/108 O2 Sat by Pulse 77 L 92 97 Oximetry 04/17/19 04/17/19 04/17/19 16:45 16:57 16:58 Temperature 98 F Pulse Rate 97 H Pulse Rate [ Bilateral Throughout] Respiratory 22 22 Rate Respiratory Rate [Bilateral Throughout] Blood Pressure 156/102 O2 Sat by Pulse 97 98 Oximetry 04/17/19 04/17/19 04/17/19 17:00 17:15 17:30 Temperature Pulse Rate 91 H 89 95 H Pulse Rate [ Bilateral Throughout] Respiratory 22 20 21 Rate Respiratory Rate [Bilateral Throughout] Blood Pressure 154/93 164/100 149/96 O2 Sat by Pulse 97 99 97 Oximetry 04/17/19 04/17/19 18:00 18:03 Temperature Pulse Rate 97 H Pulse Rate [ 101 H Bilateral Throughout] Respiratory 18 Rate Respiratory 18 Rate [Bilateral Throughout] Blood Pressure 131/89 O2 Sat by Pulse 98 Oximetry - Reevaluation(s) Reevaluation #1: 04/17/19 16:38 He was presenting in respiratory distress with significant wheeze. Patient was placed on BiPAP and will be given a note treatment with his BiPAP Reevaluation #2: 04/17/19 18:25 Received a hour-long breathing treatment on BiPAP and although he feels somewhat improved he continues to have loud diffuse wheezing. Patient to be admitted to the hospitalist service for further management. ED Medical Decision Making - Lab Data Result diagrams: 04/17/19 Unknown 04/17/19 Unknown - EKG Data -: EKG Interpreted by Me - EKG Data 04/17/19 16:40 EKG shows a sinus rhythm rate of 83. Kite is normal intervals are normal there is evidence of LVH and occasional PVCs. There is no ST segment elevations or depressions. Time of interpretation 1620. - Radiology Data CHEST 1 VIEW 04/17/2019 4:29 PM INDICATION / CLINICAL INFORMATION: respiratory distress. COMPARISON: 2 views of the chest from 10/25/2017. FINDINGS: SUPPORT DEVICES: None. HEART / MEDIASTINUM: No significant abnormality. LUNGS / PLEURA: The lungs are hyperexpanded without an acute pulmonary abnormality. No significant pleural effusion or pneumothorax. ADDITIONAL FINDINGS: No significant additional findings. IMPRESSION: 1. No acute abnormality of the chest. Signer Name: Rai Vásquez MD Signed: 04/17/2019 4:55 PM Workstation Name: [id number] Critical Care Time: Yes (30) Critical care attestation.: If time is entered above; I have spent that time in minutes in the direct care of this critically ill patient, excluding procedure time. ED Disposition Clinical Impression: Acute exacerbation of COPD with asthma, Hypoxia Disposition: OP ADMIT IP TO THIS HOSP Is pt being admited?: Yes Does the pt Need Aspirin: No Condition: Stable Time of Disposition: 18:26
[2019-04-17] MEDS ORDERED: MAGNESIUM SULFATE 2 GM/50 ML BAG IV ONE ×2 (16:39→16:49)
--- NOTE | 2019-04-17 17:00 | XRay Report ---
CHEST 1 VIEW 04/17/2019 4:29 PM INDICATION / CLINICAL INFORMATION: respiratory distress. COMPARISON: 2 views of the chest from 10/25/2017. FINDINGS: SUPPORT DEVICES: None. HEART / MEDIASTINUM: No significant abnormality. LUNGS / PLEURA: The lungs are hyperexpanded without an acute pulmonary abnormality. No significant pl eural effusion or pneumothorax. ADDITIONAL FINDINGS: No significant additional findings. IMPRESSION: 1. No acute abnormality of the chest. Signer Name: Rai Vásquez MD Signed: 04/17/2019 4:55 PM Workstation Name: [email or web address]
[2019-04-17 17:37] LABS: Hematocrit 45.5 % (35.5-45.6); Hemoglobin 14.9 gm/dl (11.8-15.2); Mean Corpuscular HGB Conc 33 % (32-34); Mean Corpuscular Volume 87 fl (84-94); Platelet Count 312 K/mm3 (140-440); Red Blood Count 5.24 M/mm3 (3.65-5.03); Red Cell Distribution Width 15.5 % (13.2-15.2)
[2019-04-17 17:44] LABS: BUN/Creatinine Ratio 11; Blood Urea Nitrogen 15 mg/dL (9-20); Calcium 8.9 mg/dL (8.4-10.2); Hemolysis Index 6
[2019-04-17 18:32] LABS: Basophils % (Manual) 0 % (0.0-1.8); Total Cells Counted 100
[2019-04-17 18:33] LABS: Large Platelets 1+; Ovalocytes Few
[2019-04-17 18:34] LABS: Anisocytosis 1+; Platelet Estimate Consistent w Auto
[2019-04-17] MEDS ORDERED: ONDANSETRON 4 MG/2 ML INJ IV PRN (19:56)
[2019-04-17] MEDS ORDERED: ALBUTEROL 2.5 MG/3 ML NEBU IH PRN (19:56)
[2019-04-17] MEDS ORDERED: ACETAMINOPHEN 325 MG TAB PO PRN (19:56)
[2019-04-17] MEDS ORDERED: IPRATROPIUM/ALBUTEROL SULFATE 3 ML AMPUL.NEB IH SCH (20:00)
[2019-04-17] MEDS: BUDESONIDE 0.5 MG/2 ML NEBU IH SCH (20:25)
--- NOTE | 2019-04-17 20:42 | History and Physical Report ---
<BO MCGUIRE - Last Filed: 04/17/19 20:37> History of Present Illness Date of examination: 04/17/19 Date of admission: 04/17/19 18:27 Chief complaint: MIROSLAVA and wheezing History of present illness: 68-year-old -[place] male who was a former smoker with history of COPD, hypertension, and seizure disorder who presents to [facility] ED with complaints of shortness of breath and wheezing. Pt states that he began feeling SOB earlier t mat and tried using his inhaler and home nebulizer with no relief. Upon arrival to our facility pt as found to be hypoxic with saturation in low 80's. He was given nebulizer treatment, steroids, IV magnesium 2 g and placed on BiPaP. He denies CP and headache. Past History Past Medical History: COPD, hypertension, seizures Past Surgical History: appendectomy, Other ( Brain surgery: 3.5 cm frontal mass secondary to meningioma seen on MRI 09/18/2014 (surgically removed) Social history: lives with family Family history: no significant family history Medications and Allergies Allergies Allergy/AdvReac Type Severity Reaction Status Date / Time No Known Allergies Allergy Verified 10/25/17 08:47 Home Medications Medication Instructions Recorded Confirmed Last Taken Type levETIRAcetam [Keppra TAB] 500 mg PO BID #60 tablet 09/20/14 09/26/17 10/20/14 Rx Citalopram Hydrobromide [celeXA] 40 mg PO DAILY 11/25/15 09/26/17 Unknown History Cholecalciferol (Vitamin D3) 1,000 unit PO DAILY 08/02/17 09/26/17 Unknown History [Vitamin D3] Finasteride [Proscar] 5 mg PO DAILY 08/02/17 09/26/17 Unknown History Tamsulosin HCl [Flomax] 0.4 mg PO DAILY 08/02/17 09/26/17 Unknown History Aspirin [Aspirin BABY CHEW TAB] 81 mg PO QDAY #30 tab.chew 09/26/17 Unknown Rx predniSONE [Deltasone] 20 mg PO QDAY #4 tab 10/25/17 Unknown Rx Active Meds: Active Medications Acetaminophen (Tylenol) 650 mg PO Q4H PRN PRN Reason: Pain MILD(1-3)/Fever >100.5/GUNTER Albuterol (Proventil) 2.5 mg IH Q3HRT PRN PRN Reason: Shortness Of Breath Albuterol/Ipratropium (Duoneb *Not For Prn Use*) 1 ampul IH Q6HRT [facility] Last Admin: 04/17/19 20:25 Dose: 1 ampul Documented by: Aspirin (Baby Aspirin) 81 mg PO QDAY [facility] Budesonide (Pulmicort) 0.5 mg IH Q12HRT [facility] Last Admin: 04/17/19 20:25 Dose: 0.5 mg Documented by: Docusate Sodium (Colace) 100 mg PO BID NETTA Levetiracetam (Keppra) 500 mg PO BID [facility] Methylprednisolone Sodium Succinate (Solu-Medrol) 60 mg IV Q8HR NETTA Ondansetron HCl (Zofran) 4 mg IV Q8H PRN PRN Reason: Nausea And Vomiting Sodium Chloride (Sodium Chloride Flush Syringe 10 Ml) 10 ml IV BID NETTA Sodium Chloride (Sodium Chloride Flush Syringe 10 Ml) 10 ml IV PRN PRN PRN Reason: LINE FLUSH Review of Systems All systems: negative Cardiovascular: shortness of breath, dyspnea on exertion Respiratory: shortness of breath, dyspnea on exertion, wheezing Exam - Physical Exam Narrative exam: Physical exam General appearance: Present: mild distress,alert and oriented 3, well developed , older adult -[place] male - EENT Eyes: Present: PERRL, EOM intact ENT: hearing intact, normal dentition - Neck Neck: Present: supple, normal ROM - Respiratory Respiratory effort: Labored, on BiPAP Respiratory: Scattered wheezing throughout - Cardiovascular Heart rate: 93 (bpm) Rhythm: Sinus rhythm Heart Sounds: Present: S1 & S2. Absent: rub, click - Extremities Extremities: no ischemia, pulses intact, - Peripheral Assessment Peripheral Pulses: within normal limits - Abdominal General gastrointestinal: soft, non-tender, normal bowel sounds - Integumentary Integumentary: Present: warm, dry - Musculoskeletal Musculoskeletal: Able to move all extremities -Neurological Neurological: CN II-XII intact - Psychiatric Psychiatric: cooperative - Constitutional Vitals: Temp Pulse Resp BP Pulse Ox 98.6 F 93 H 26 H 133/88 99 04/17/19 19:09 04/17/19 19:45 04/17/19 19:45 04/17/19 19:45 04/17/19 19:45 Results - Labs CBC & Chem 7: 04/17/19 Unknown 11/24/19 Unknown Labs: Laboratory Last Values WBC 9.9 K/mm3 (4.5-11.0) 04/17/19 Unknown RBC 5.24 M/mm3 (3.65-5.03) H 04/17/19 Unknown Hgb 14.9 gm/dl (11.8-15.2) 04/17/19 Unknown Hct 45.5 % (35.5-45.6) 04/17/19 Unknown MCV 87 fl (84-94) 04/17/19 Unknown MCH 28 pg (28-32) 04/17/19 Unknown MCHC 33 % (32-34) 04/17/19 Unknown RDW 15.5 % (13.2-15.2) H 04/17/19 Unknown Plt Count 312 K/mm3 (140-440) 04/17/19 Unknown Add Manual Diff Complete 04/17/19 Unknown Total Counted 100 04/17/19 Unknown Seg Neuts % (Manual) 78.0 % (40.0-70.0) H 04/17/19 Unknown Band Neutrophils % 0 % 04/17/19 Unknown Lymphocytes % (Manual) 12.0 % (13.4-35.0) L 04/17/19 Unknown Reactive Lymphs % (Man) 0 % 04/17/19 Unknown Monocytes % (Manual) 7.0 % (0.0-7.3) 04/17/19 Unknown Eosinophils % (Manual) 3.0 % (0.0-4.3) 04/17/19 Unknown Basophils % (Manual) 0 % (0.0-1.8) 04/17/19 Unknown Metamyelocytes % 0 % 04/17/19 Unknown Myelocytes % 0 % 04/17/19 Unknown Promyelocytes % 0 % 04/17/19 Unknown Blast Cells % 0 % 04/17/19 Unknown Nucleated RBC % Not Reportable 04/17/19 Unknown Seg Neutrophils # Man 7.7 K/mm3 (1.8-7.7) 04/17/19 Unknown Band Neutrophils # 0.0 K/mm3 04/17/19 Unknown Lymphocytes # (Manual) 1.2 K/mm3 (1.2-5.4) 04/17/19 Unknown Abs React Lymphs (Man) 0.0 K/mm3 04/17/19 Unknown Monocytes # (Manual) 0.7 K/mm3 (0.0-0.8) 04/17/19 Unknown Eosinophils # (Manual) 0.3 K/mm3 (0.0-0.4) 04/17/19 Unknown Basophils # (Manual) 0.0 K/mm3 (0.0-0.1) 04/17/19 Unknown Metamyelocytes # 0.0 K/mm3 04/17/19 Unknown Myelocytes # 0.0 K/mm3 04/17/19 Unknown Promyelocytes # 0.0 K/mm3 04/17/19 Unknown Blast Cells # 0.0 K/mm3 04/17/19 Unknown WBC Morphology Not Reportable 04/17/19 Unknown Hypersegmented Neuts Not Reportable 04/17/19 Unknown Hyposegmented Neuts Not Reportable 04/17/19 Unknown Hypogranular Neuts Not Reportable 04/17/19 Unknown Smudge Cells Not Reportable 04/17/19 Unknown Toxic Granulation Not Reportable 04/17/19 Unknown Toxic Vacuolation Not Reportable 04/17/19 Unknown Dohle Bodies Not Reportable 04/17/19 Unknown Pelger-Huet Anomaly Not Reportable 04/17/19 Unknown Mickey Rods Not Reportable 04/17/19 Unknown Platelet Estimate Consistent w auto 04/17/19 Unknown Clumped Platelets Not Reportable 04/17/19 Unknown Plt Clumps, EDTA Not Reportable 04/17/19 Unknown Large Platelets 1+ 04/17/19 Unknown Giant Platelets Not Reportable 04/17/19 Unknown Platelet Satelliting Not Reportable 04/17/19 Unknown Plt Morphology Comment Not Reportable 04/17/19 Unknown RBC Morphology Not Reportable 04/17/19 Unknown Dimorphic RBCs Not Reportable 04/17/19 Unknown Polychromasia Not Reportable 04/17/19 Unknown Hypochromasia Not Reportable 04/17/19 Unknown Poikilocytosis Not Reportable 04/17/19 Unknown Anisocytosis 1+ 04/17/19 Unknown Microcytosis Not Reportable 04/17/19 Unknown Macrocytosis Not Reportable 04/17/19 Unknown Spherocytes Not Reportable 04/17/19 Unknown Pappenheimer Bodies Not Reportable 04/17/19 Unknown Sickle Cells Not Reportable 04/17/19 Unknown Target Cells Not Reportable 04/17/19 Unknown Tear Drop Cells Not Reportable 04/17/19 Unknown Ovalocytes Few 04/17/19 Unknown Helmet Cells Not Reportable 04/17/19 Unknown Pelletier-Whitharral Bodies Not Reportable 04/17/19 Unknown Velarde Rings Not Reportable 04/17/19 Unknown Cornelio Cells Not Reportable 04/17/19 Unknown Bite Cells Not Reportable 04/17/19 Unknown Crenated Cell Not Reportable 04/17/19 Unknown Elliptocytes Few 04/17/19 Unknown Acanthocytes (Spur) Not Reportable 04/17/19 Unknown Rouleaux Not Reportable 04/17/19 Unknown Hemoglobin C Crystals Not Reportable 04/17/19 Unknown Schistocytes Not Reportable 04/17/19 Unknown Malaria parasites Not Reportable 04/17/19 Unknown Dae Bodies Not Reportable 04/17/19 Unknown Hem Pathologist Commnt No 04/17/19 Unknown Sodium 139 mmol/L (137-145) 04/17/19 Unknown Potassium 4.1 mmol/L (3.6-5.0) 04/17/19 Unknown Chloride 98.2 mmol/L (98-107) 04/17/19 Unknown Carbon Dioxide 24 mmol/L (22-30) 04/17/19 Unknown Anion Gap 21 mmol/L 04/17/19 Unknown BUN 15 mg/dL (9-20) 04/17/19 Unknown Creatinine 1.4 mg/dL (0.8-1.5) 04/17/19 Unknown Estimated GFR > 60 ml/min 04/17/19 Unknown BUN/Creatinine Ratio 11 % 04/17/19 Unknown Glucose 149 mg/dL (75-100) H 04/17/19 Unknown Calcium 8.9 mg/dL (8.4-10.2) 04/17/19 Unknown Troponin T < 0.010 ng/mL (0.00-0.029) 04/17/19 Unknown NT-Pro-B Natriuret Pep 112.9 pg/mL (0-900) 04/17/19 Unknown - Imaging and Cardiology Imaging and Cardiology: CXR: FINDINGS: SUPPORT DEVICES: None. HEART / MEDIASTINUM: No significant abnormality. LUNGS / PLEURA: The lungs are hyperexpanded without an acute pulmonary abnormality. No significant pleural effusion or pneumothorax. ADDITIONAL FINDINGS: No significant additional findings. IMPRESSION: 1. No acute abnormality of the chest. Assessment and Plan Assessment and plan: 68-year-old -[place] male who was a former smoker with history of COPD, hypertension, and seizure disorder who presents to [facility] ED with complaints of shortness of breath and wheezing. At the time of my examination patient remains on BiPAP. On auscultation scattered wheezing throughout. Will admit for further evaluation and treatment. Acute hypoxic respiratory failure -No Baseline home oxygen requirements -Currently on BiPAP -Saturation in low 80s on room air -Monitor saturations -Continue supplemental oxygen wean as tolerated Acute exacerbation COPD -Increased shortness of breath, audible wheezing -Scheduled to DuoNebs and Pulmicort, albuterol when necessary -IV systemic steroids HTN -Monitor BP -Resume home hypertensive meds once medication reconciliation has been updated -IV hydralazine when necessary Hx Seizures -on Keppra 500mg BID DVT PPX -on Lovenox Advance Directives: No VTE prophylaxis?: Chemical Plan of care discussed with patient/family: Yes <DEE DEE DOYLE - Last Filed: 04/18/19 02:29> History of Present Illness Date of admission: 04/17/19 18:27 Medications and Allergies Active Meds: Active Medications Acetaminophen (Tylenol) 650 mg PO Q4H PRN PRN Reason: Pain MILD(1-3)/Fever >100.5/GUNTER Albuterol (Proventil) 2.5 mg IH Q3HRT PRN PRN Reason: Shortness Of Breath Albuterol/Ipratropium (Duoneb *Not For Prn Use*) 1 ampul IH TIDRT [facility] Aspirin (Baby Aspirin) 81 mg PO QDAY [facility] Budesonide (Pulmicort) 0.5 mg IH Q12HRT [facility] Last Admin: 04/17/19 20:25 Dose: 0.5 mg Documented by: Docusate Sodium (Colace) 100 mg PO BID [facility] Last Admin: 04/17/19 22:52 Dose: Not Given Documented by: Levetiracetam (Keppra) 500 mg PO BID [facility] Last Admin: 04/17/19 22:51 Dose: 500 mg Documented by: Methylprednisolone Sodium Succinate (Solu-Medrol) 125 mg IV Q6HR [facility] Ondansetron HCl (Zofran) 4 mg IV Q8H PRN PRN Reason: Nausea And Vomiting Sodium Chloride (Sodium Chloride Flush Syringe 10 Ml) 10 ml IV BID [facility] Last Admin: 04/17/19 22:51 Dose: 10 ml Documented by: Sodium Chloride (Sodium Chloride Flush Syringe 10 Ml) 10 ml IV PRN PRN PRN Reason: LINE FLUSH Exam - Constitutional Vitals: Temp Pulse Resp BP Pulse Ox 97.9 F 86 24 124/86 99 04/18/19 00:35 04/18/19 00:35 04/18/19 00:35 04/18/19 00:35 04/18/19 00:35 Results - Labs CBC & Chem 7: 04/17/19 Unknown 04/17/19 Unknown Labs: Laboratory Last Values WBC 9.9 K/mm3 (4.5-11.0) 04/17/19 Unknown RBC 5.24 M/mm3 (3.65-5.03) H 04/17/19 Unknown Hgb 14.9 gm/dl (11.8-15.2) 04/17/19 Unknown Hct 45.5 % (35.5-45.6) 04/17/19 Unknown MCV 87 fl (84-94) 04/17/19 Unknown MCH 28 pg (28-32) 04/17/19 Unknown MCHC 33 % (32-34) 04/17/19 Unknown RDW 15.5 % (13.2-15.2) H 04/17/19 Unknown Plt Count 312 K/mm3 (140-440) 04/17/19 Unknown Add Manual Diff Complete 04/17/19 Unknown Total Counted 100 04/17/19 Unknown Seg Neuts % (Manual) 78.0 % (40.0-70.0) H 04/17/19 Unknown Band Neutrophils % 0 % 04/17/19 Unknown Lymphocytes % (Manual) 12.0 % (13.4-35.0) L 04/17/19 Unknown Reactive Lymphs % (Man) 0 % 04/17/19 Unknown Monocytes % (Manual) 7.0 % (0.0-7.3) 04/17/19 Unknown Eosinophils % (Manual) 3.0 % (0.0-4.3) 04/17/19 Unknown Basophils % (Manual) 0 % (0.0-1.8) 04/17/19 Unknown Metamyelocytes % 0 % 04/17/19 Unknown Myelocytes % 0 % 04/17/19 Unknown Promyelocytes % 0 % 04/17/19 Unknown Blast Cells % 0 % 04/17/19 Unknown Nucleated RBC % Not Reportable 04/17/19 Unknown Seg Neutrophils # Man 7.7 K/mm3 (1.8-7.7) 04/17/19 Unknown Band Neutrophils # 0.0 K/mm3 04/17/19 Unknown Lymphocytes # (Manual) 1.2 K/mm3 (1.2-5.4) 04/17/19 Unknown Abs React Lymphs (Man) 0.0 K/mm3 04/17/19 Unknown Monocytes # (Manual) 0.7 K/mm3 (0.0-0.8) 04/17/19 Unknown Eosinophils # (Manual) 0.3 K/mm3 (0.0-0.4) 04/17/19 Unknown Basophils # (Manual) 0.0 K/mm3 (0.0-0.1) 04/17/19 Unknown Metamyelocytes # 0.0 K/mm3 04/17/19 Unknown Myelocytes # 0.0 K/mm3 04/17/19 Unknown Promyelocytes # 0.0 K/mm3 04/17/19 Unknown Blast Cells # 0.0 K/mm3 04/17/19 Unknown WBC Morphology Not Reportable 04/17/19 Unknown Hypersegmented Neuts Not Reportable 04/17/19 Unknown Hyposegmented Neuts Not Reportable 04/17/19 Unknown Hypogranular Neuts Not Reportable 04/17/19 Unknown Smudge Cells Not Reportable 04/17/19 Unknown Toxic Granulation Not Reportable 04/17/19 Unknown Toxic Vacuolation Not Reportable 04/17/19 Unknown Dohle Bodies Not Reportable 04/17/19 Unknown Pelger-Huet Anomaly Not Reportable 04/17/19 Unknown Mickey Rods Not Reportable 04/17/19 Unknown Platelet Estimate Consistent w auto 04/17/19 Unknown Clumped Platelets Not Reportable 04/17/19 Unknown Plt Clumps, EDTA Not Reportable 04/17/19 Unknown Large Platelets 1+ 04/17/19 Unknown Giant Platelets Not Reportable 04/17/19 Unknown Platelet Satelliting Not Reportable 04/17/19 Unknown Plt Morphology Comment Not Reportable 04/17/19 Unknown RBC Morphology Not Reportable 04/17/19 Unknown Dimorphic RBCs Not Reportable 04/17/19 Unknown Polychromasia Not Reportable 04/17/19 Unknown Hypochromasia Not Reportable 04/17/19 Unknown Poikilocytosis Not Reportable 04/17/19 Unknown Anisocytosis 1+ 04/17/19 Unknown Microcytosis Not Reportable 04/17/19 Unknown Macrocytosis Not Reportable 04/17/19 Unknown Spherocytes Not Reportable 04/17/19 Unknown Pappenheimer Bodies Not Reportable 04/17/19 Unknown Sickle Cells Not Reportable 04/17/19 Unknown Target Cells Not Reportable 04/17/19 Unknown Tear Drop Cells Not Reportable 04/17/19 Unknown Ovalocytes Few 04/17/19 Unknown Helmet Cells Not Reportable 04/17/19 Unknown Pelletier-Whitharral Bodies Not Reportable 04/17/19 Unknown Velarde Rings Not Reportable 04/17/19 Unknown Cornelio Cells Not Reportable 04/17/19 Unknown Bite Cells Not Reportable 04/17/19 Unknown Crenated Cell Not Reportable 04/17/19 Unknown Elliptocytes Few 04/17/19 Unknown Acanthocytes (Spur) Not Reportable 04/17/19 Unknown Rouleaux Not Reportable 04/17/19 Unknown Hemoglobin C Crystals Not Reportable 04/17/19 Unknown Schistocytes Not Reportable 04/17/19 Unknown Malaria parasites Not Reportable 04/17/19 Unknown Dae Bodies Not Reportable 04/17/19 Unknown Hem Pathologist Commnt No 04/17/19 Unknown Sodium 139 mmol/L (137-145) 04/17/19 Unknown Potassium 4.1 mmol/L (3.6-5.0) 04/17/19 Unknown Chloride 98.2 mmol/L (98-107) 04/17/19 Unknown Carbon Dioxide 24 mmol/L (22-30) 04/17/19 Unknown Anion Gap 21 mmol/L 04/17/19 Unknown BUN 15 mg/dL (9-20) 04/17/19 Unknown Creatinine 1.4 mg/dL (0.8-1.5) 04/17/19 Unknown Estimated GFR > 60 ml/min 04/17/19 Unknown BUN/Creatinine Ratio 11 % 04/17/19 Unknown Glucose 149 mg/dL (75-100) H 04/17/19 Unknown Calcium 8.9 mg/dL (8.4-10.2) 04/17/19 Unknown Troponin T < 0.010 ng/mL (0.00-0.029) 04/17/19 Unknown NT-Pro-B Natriuret Pep 112.9 pg/mL (0-900) 04/17/19 Unknown Assessment and Plan Assessment and plan: Patient seen and examined, discussed with nurse practitioner. 68-year-old male with a history of COPD, hypertension, seizure, PSTD, depression because emergency room with complaints of shortness of breath not relieved with his nebulizer treatments. Agree with high-dose steroids and nebulizer treatments for COPD exacerbation. Patienttook off his BiPAP, refuse to wear it anymore. Continue to monitor
[2019-04-17] MEDS ORDERED: methylPREDNISolone Sod Succinate 125 MG/2 ML INJ IV SCH (22:00)
[2019-04-17] MEDS: levETIRAcetam 500 MG TAB PO SCH (22:51)
[2019-04-17] MEDS: DOCUSATE SODIUM 100 MG CAP PO SCH (22:52)
[2019-04-18] MEDS: methylPREDNISolone Sod Succinate 125 MG/2 ML INJ IV SCH ×3 (06:05→18:44)
[2019-04-18 07:45] LABS: Hematocrit 43.8 % (35.5-45.6); Hemoglobin 14.5 gm/dl (11.8-15.2); Mean Corpuscular HGB Conc 33 % (32-34); Mean Corpuscular Volume 86 fl (84-94); Platelet Count 295 K/mm3 (140-440); Red Blood Count 5.08 M/mm3 (3.65-5.03); Red Cell Distribution Width 15.8 % (13.2-15.2)
[2019-04-18 08:28] LABS: BUN/Creatinine Ratio 11; Blood Urea Nitrogen 13 mg/dL (9-20); Calcium 9.2 mg/dL (8.4-10.2); Hemolysis Index 10
--- NOTE | 2019-04-18 08:33 | Progress Note ---
Assessment and Plan - Patient Problems (1) COPD (chronic obstructive pulmonary disease) Current Visit: Yes Status: Acute Plan to address problem: Patient appears to have acute respiratory failure secondary to COPD patient is wheezing shortness of breath. Relief with inhalers and nebulizers therefore patient decided to come to the ED. Currently patient states he feels a little better. Still has significant wheezing and respiratory distress on visit from the hallway. Patient also sound anteriorly congested and crackles in the lower lung leung. (2) Acute exacerbation of COPD with asthma Current Visit: Yes Status: Acute (3) Hypertension Current Visit: Yes Status: Acute Plan to address problem: The pressure patient remains normotensive today. (4) Acute respiratory failure Current Visit: Yes Status: Acute Plan to address problem: Respiratory failure secondary to COPD. No underlying infection as a note yet. History Interval history: Patient 68-year-old male presented with acute respiratory failure secondary to COPD exacerbation. Patient sits in the 80 the ED requiring BiPAP. At present does not denies any new concerns. Shortness of breath is a little better. Patient still has significant wheezing and complaints. Currently in no acute distress on O2. Hospitalist Physical - Constitutional Vitals: Temp Pulse Resp BP Pulse Ox 98.5 F 83 20 149/89 98 04/18/19 04:49 04/18/19 05:00 04/18/19 04:49 04/18/19 04:49 04/18/19 04:49 General appearance: Present: mild distress - EENT Eyes: Present: PERRL, EOM intact ENT: hearing intact, clear oral mucosa, dentition normal - Neck Neck: Present: supple, normal ROM - Respiratory Respiratory effort: normal Respiratory: bilateral: diminished, rhonchi - Cardiovascular Rhythm: regular Heart Sounds: Present: S1 & S2 - Extremities Extremities: no ischemia, pulses intact, pulses symmetrical, No edema, normal temperature, normal color Peripheral Pulses: within normal limits - Abdominal General gastrointestinal: soft, non-tender, distended, normal bowel sounds - Psychiatric Psychiatric: appropriate mood/affect, cooperative - Neurologic Neurologic: CNII-XII intact, focal deficits, other Results - Labs CBC & Chem 7: 04/18/19 06:53 04/18/19 06:53 Labs: Laboratory Last Values WBC 8.4 K/mm3 (4.5-11.0) 04/18/19 06:53 RBC 5.08 M/mm3 (3.65-5.03) H 04/18/19 06:53 Hgb 14.5 gm/dl (11.8-15.2) 04/18/19 06:53 Hct 43.8 % (35.5-45.6) 04/18/19 06:53 MCV 86 fl (84-94) 04/18/19 06:53 MCH 29 pg (28-32) 04/18/19 06:53 MCHC 33 % (32-34) 04/18/19 06:53 RDW 15.8 % (13.2-15.2) H 04/18/19 06:53 Plt Count 295 K/mm3 (140-440) 04/18/19 06:53 Add Manual Diff Complete 04/17/19 Unknown Total Counted 100 04/17/19 Unknown Seg 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 % [employer]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 04/18/19 06:53 Seg Neuts % (Manual) 78.0 % (40.0-70.0) H 04/17/19 Unknown Band Neutrophils % 0 % 04/17/19 Unknown Lymphocytes % (Manual) 12.0 % (13.4-35.0) L 04/17/19 Unknown Reactive Lymphs % (Man) 0 % 04/17/19 Unknown Monocytes % (Manual) 7.0 % (0.0-7.3) 04/17/19 Unknown Eosinophils % (Manual) 3.0 % (0.0-4.3) 04/17/19 Unknown Basophils % (Manual) 0 % (0.0-1.8) 04/17/19 Unknown Metamyelocytes % 0 % 04/17/19 Unknown Myelocytes % 0 % 04/17/19 Unknown Promyelocytes % 0 % 04/17/19 Unknown Blast Cells % 0 % 04/17/19 Unknown Nucleated RBC % Not Reportable 04/17/19 Unknown Seg Neutrophils # Man 7.7 K/mm3 (1.8-7.7) 04/17/19 Unknown Band Neutrophils # 0.0 K/mm3 04/17/19 Unknown Lymphocytes # (Manual) 1.2 K/mm3 (1.2-5.4) 04/17/19 Unknown Abs React Lymphs (Man) 0.0 K/mm3 04/17/19 Unknown Monocytes # (Manual) 0.7 K/mm3 (0.0-0.8) 04/17/19 Unknown Eosinophils # (Manual) 0.3 K/mm3 (0.0-0.4) 04/17/19 Unknown Basophils # (Manual) 0.0 K/mm3 (0.0-0.1) 04/17/19 Unknown Metamyelocytes # 0.0 K/mm3 04/17/19 Unknown Myelocytes # 0.0 K/mm3 04/17/19 Unknown Promyelocytes # 0.0 K/mm3 04/17/19 Unknown Blast Cells # 0.0 K/mm3 04/17/19 Unknown WBC Morphology Not Reportable 04/17/19 Unknown Hypersegmented Neuts Not Reportable 04/17/19 Unknown Hyposegmented Neuts Not Reportable 04/17/19 Unknown Hypogranular Neuts Not Reportable 04/17/19 Unknown Smudge Cells Not Reportable 04/17/19 Unknown Toxic Granulation Not Reportable 04/17/19 Unknown Toxic Vacuolation Not Reportable 04/17/19 Unknown Dohle Bodies Not Reportable 04/17/19 Unknown Pelger-Huet Anomaly Not Reportable 04/17/19 Unknown Mickey Rods Not Reportable 04/17/19 Unknown Platelet Estimate Consistent w auto 04/17/19 Unknown Clumped Platelets Not Reportable 04/17/19 Unknown Plt Clumps, EDTA Not Reportable 04/17/19 Unknown Large Platelets 1+ 04/17/19 Unknown Giant Platelets Not Reportable 04/17/19 Unknown Platelet Satelliting Not Reportable 04/17/19 Unknown Plt Morphology Comment Not Reportable 04/17/19 Unknown RBC Morphology Not Reportable 04/17/19 Unknown Dimorphic RBCs Not Reportable 04/17/19 Unknown Polychromasia Not Reportable 04/17/19 Unknown Hypochromasia Not Reportable 04/17/19 Unknown Poikilocytosis Not Reportable 04/17/19 Unknown Anisocytosis 1+ 04/17/19 Unknown Microcytosis Not Reportable 04/17/19 Unknown Macrocytosis Not Reportable 04/17/19 Unknown Spherocytes Not Reportable 04/17/19 Unknown Pappenheimer Bodies Not Reportable 04/17/19 Unknown Sickle Cells Not Reportable 04/17/19 Unknown Target Cells Not Reportable 04/17/19 Unknown Tear Drop Cells Not Reportable 04/17/19 Unknown Ovalocytes Few 04/17/19 Unknown Helmet Cells Not Reportable 04/17/19 Unknown [place] Bodies Not Reportable 04/17/19 Unknown [place] Rings Not Reportable 04/17/19 Unknown Cornelio Cells Not Reportable 04/17/19 Unknown Bite Cells Not Reportable 04/17/19 Unknown Crenated Cell Not Reportable 04/17/19 Unknown Elliptocytes Few 04/17/19 Unknown Acanthocytes (Spur) Not Reportable 04/17/19 Unknown Rouleaux Not Reportable 04/17/19 Unknown Hemoglobin C Crystals Not Reportable 04/17/19 Unknown Schistocytes Not Reportable 04/17/19 Unknown Malaria parasites Not Reportable 04/17/19 Unknown Dae Bodies Not Reportable 04/17/19 Unknown Hem Pathologist Commnt No 04/17/19 Unknown Sodium 144 mmol/L (137-145) 04/18/19 06:53 Potassium 4.4 mmol/L (3.6-5.0) 04/18/19 06:53 Chloride 102.9 mmol/L (98-107) 04/18/19 06:53 Carbon Dioxide 25 mmol/L (22-30) 04/18/19 06:53 Anion Gap 21 mmol/L 04/18/19 06:53 BUN 13 mg/dL (9-20) 04/18/19 06:53 Creatinine 1.2 mg/dL (0.8-1.5) 04/18/19 06:53 Estimated GFR > 60 ml/min 04/18/19 06:53 BUN/Creatinine Ratio 11 % 04/18/19 06:53 Glucose 137 mg/dL (75-100) H 04/18/19 06:53 Calcium 9.2 mg/dL (8.4-10.2) 04/18/19 06:53 Troponin T < 0.010 ng/mL (0.00-0.029) 04/17/19 Unknown NT-Pro-B Natriuret Pep 112.9 pg/mL (0-900) 04/17/19 Unknown - Imaging and Cardiology Chest x-ray: report reviewed, image reviewed Active Medications - Current Medications Current Medications: Generic Name Dose Route Start Last Admin Trade Name Freq PRN Reason Stop Dose Admin Acetaminophen 650 mg 04/17/19 19:56 Tylenol PO Q4H PRN Pain MILD(1-3)/Fever >100.5/GUNTER Albuterol 2.5 mg 04/17/19 19:56 Proventil IH Q3HRT PRN Shortness Of Breath Albuterol/Ipratropium 1 ampul 04/18/19 08:00 Duoneb *Not For Prn Use* IH TIDRT NETTA Aspirin 81 mg 04/18/19 10:00 Baby Aspirin PO QDAY NETTA Budesonide 0.5 mg 04/17/19 20:00 04/17/19 20:25 Pulmicort IH 0.5 mg Q12HRT NETTA Administration Docusate Sodium 100 mg 04/17/19 22:00 04/17/19 22:52 Colace PO Not Given BID NETTA Levetiracetam 500 mg 04/17/19 22:00 04/17/19 22:51 Keppra PO 500 mg BID NETTA Administration Methylprednisolone Sodium Succinate 125 mg 04/18/19 06:00 04/18/19 06:05 Solu-Medrol IV 125 mg Q6HR NETTA Administration Ondansetron HCl 4 mg 04/17/19 19:56 Zofran IV Q8H PRN Nausea And Vomiting Sodium Chloride 10 ml 04/17/19 22:00 04/17/19 22:51 Sodium Chloride Flush Syringe 10 Ml IV 10 ml BID NETTA Administration Sodium Chloride 10 ml 04/17/19 19:56 Sodium Chloride Flush Syringe 10 Ml IV PRN PRN LINE FLUSH
[2019-04-18] MEDS: BUDESONIDE 0.5 MG/2 ML NEBU IH SCH ×2 (08:40→20:37)
[2019-04-18] MEDS: IPRATROPIUM/ALBUTEROL SULFATE 3 ML AMPUL.NEB IH SCH ×3 (08:42→20:37)
[2019-04-18 09:50] LABS: Basophils % (Manual) 0 % (0.0-1.8); Eosinophils % (Manual) 0 % (0.0-4.3); Total Cells Counted 100
[2019-04-18 09:51] LABS: Anisocytosis Few; Large Platelets Few; Ovalocytes Rare; Platelet Estimate Consistent w Auto
[2019-04-18] MEDS: DOCUSATE SODIUM 100 MG CAP PO SCH ×2 (10:32→22:13)
[2019-04-18] MEDS: levETIRAcetam 500 MG TAB PO SCH ×2 (10:33→22:13)
[2019-04-18] MEDS: ASPIRIN 81 MG TAB CHEW PO SCH (10:33)
[2019-04-19] MEDS: methylPREDNISolone Sod Succinate 125 MG/2 ML INJ IV SCH ×3 (03:51→11:35)
[2019-04-19] MEDS: BUDESONIDE 0.5 MG/2 ML NEBU IH SCH (07:38)
[2019-04-19] MEDS: IPRATROPIUM/ALBUTEROL SULFATE 3 ML AMPUL.NEB IH SCH ×2 (07:38→13:55)
[2019-04-19 11:19] VITALS: BP 127/83
[2019-04-19] MEDS: levETIRAcetam 500 MG TAB PO SCH (11:34)
[2019-04-19] MEDS: ASPIRIN 81 MG TAB CHEW PO SCH (11:35)
[2019-04-19] MEDS: DOCUSATE SODIUM 100 MG CAP PO SCH (11:36)
--- NOTE | 2019-04-19 12:22 | Discharge Summary ---
Providers - Providers Date of Admission: 04/17/19 18:27 Attending physician: CHRISTOPHE PATRICIA MD Primary care physician: SMASH PIECER Hospitalization Reason for admission: COPD exacerbation Condition: Stable Hospital course: -68-year-old -[place] male who was a former smoker with history of COPD, hypertension, and seizure disorder who presents to [facility] ED with complaints of shortness of breath and wheezing. Pt states that he began feeling SOB earlier today and tried using his inhaler and home nebulizer with no relief. Upon arrival to our facility pt as found to be hypoxic with saturation in low 80's. He was given nebulizer treatment, steroids, IV magnesium 2 g and placed on BiPaP. He denies CP and headache. In the ED the patient was treated with meds as listed above but with no Improvement. the patient was admitted with COPD exacerbation and continued on Bipap Imaging studies showed no acute pathology,. He remained deconditioned with congested breath sounds and after 48 hrs of steroid therapy and abx was back to his baseline for discharge Patient Problems (1)Asthma with acute exacerbation (2) Acute exacerbation of COPD with HYPOXIA (3) Hypertension (4) Acute respiratory failure Respiratory failure secondary to COPD. No underlying infection as a note yet. Disposition: DC-01 TO HOME OR SELFCARE Time spent for discharge: 35 mins Core Measure Documentation - Palliative Care Palliative Care/ Comfort Measures: Not Applicable - Core Measures Any of the following diagnoses?: none Exam - Physical Exam Narrative exam: General appearance: Present: AT BASELINE WITH NO WORSENING distress - EENT Eyes: Present: PERRL, EOM intact ENT: hearing intact, clear oral mucosa, dentition normal - Neck Neck: Present: supple, normal ROM - Respiratory Respiratory effort: normal Respiratory: bilateral: diminished, - Cardiovascular Rhythm: regular Heart Sounds: Present: S1 & S2 - Extremities Extremities: no ischemia, pulses intact, pulses symmetrical, No edema, normal temperature, normal color Peripheral Pulses: within normal limits - Abdominal General gastrointestinal: soft, non-tender, distended, normal bowel sounds - Psychiatric Psychiatric: appropriate mood/affect, cooperative - Neurologic Neurologic: CNII-XII intact, focal deficits, other - Constitutional Vitals: Temp Pulse Resp BP Pulse Ox 97.9 F 81 18 127/83 96 04/19/19 08:08 04/19/19 11:17 04/19/19 11:17 04/19/19 11:17 04/19/19 11:17 Plan Activity: advance as tolerated, fall precautions Diet: low fat Special Instructions: record daily BP diary Follow up with: PRIMARY CARE, [Primary Care Provider] - 7 Days KALIE URBAN MD [Staff Physician] - 7 Days Prescriptions: Prednisone [predniSONE 10 mg (6-Day Pack, 21 Tabs)] 10 mg PO .TAPER #1 tab.ds.pk
== END 2019-04-19 15:00 | disposition home or self-care (01) | DRG 189 ==
LOC: ED 16:09 → 4A 18:27
PROVIDERS: ADMIT Internal Medicine; ATTEND Internal Medicine
PROC: 5A09357 Assistance with Respiratory Ventilation, Less than 24 Consecutive Hours, Continuous Positive Airway Pressure (ICD-10-PCS; principal; 2019-04-17)
DX: J96.01 Acute respiratory failure with hypoxia (principal); J44.1 Chronic obstructive pulmonary disease with (acute) exacerbation; J45.901 Unspecified asthma with (acute) exacerbation; I10 Essential (primary) hypertension; F43.10 Post-traumatic stress disorder, unspecified; F32.9 Major depressive disorder, single episode, unspecified; G40.909 Epilepsy, unspecified, not intractable, without status epilepticus; Z90.49 Acquired absence of other specified parts of digestive tract; Z79.899 Other long term (current) drug therapy; Z79.82 Long term (current) use of aspirin
CPT/HCPCS: 36415; 71045; 80048; 83880; 84484; 85007; 85025; 93005; 93010; 94640; 94644; 94760; 96360; G0378; J1100; J2930; J3475; J7040

== ENCOUNTER 2020-04-24 21:18 | Emergency (ER) | payer MEDICARE ==
[2020-04-24] MEDS ORDERED: ALBUTEROL 2.5 MG/3 ML NEBU IH ONE (21:50)
[2020-04-24] MEDS ORDERED: IPRATROPIUM 0.02% NEBU 2.5 ML IH ONE (21:51)
[2020-04-24] MEDS ORDERED: methylPREDNISolone Sod Succinate 125 MG/2 ML INJ IV ONE (21:51)
[2020-04-24] MEDS ORDERED: MAGNESIUM SULFATE 2 GM/50 ML BAG IV ONE (21:51)
--- NOTE | 2020-04-24 21:56 | Emergency Department Report ---
HPI - General Chief Complaint: Dyspnea/Respdistress Time Seen by Provider: 04/24/20 21:47 - HPI HPI: This is a 69-year-old male who presents to the emergency department with complaint of a 1 day history of shortness of breath. It is associated with a dry cough and wheezing. He denies any chest pain, fever, lower extremity swelling, nausea, vomiting, back pain or diaphoresis. The patient says "it is my COPD." He is not oxygen dependent. He is a former smoker. The patient has been using his albuterol inhaler and nebulizer treatments without any relief. 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 No recent travel or sick contacts at home. No known exposure to anyone with COVID-19. ED Past Medical Hx - Past Medical History Previous Medical History?: Yes Hx Hypertension: Yes Hx Heart Attack/AMI: No Hx Congestive Heart Failure: No Hx Diabetes: No Hx Deep Vein Thrombosis: No Hx Seizures: Yes Hx Asthma: No Hx COPD: Yes Additional medical history: 3.5 cm frontal mass secondary to meningioma seen on MRI 09/18/2014 (surgically removed) - Surgical History Past Surgical History?: Yes Hx Coronary Stent: No Hx Pacemaker: No Hx Internal Defibrillator: No Hx Appendectomy: Yes Additional Surgical History: Brain sx - Social History Smoking Status: Former Smoker Substance Use Type: Alcohol - Medications Home Medications: Home Medications Medication Instructions Recorded Confirmed Last Taken Type levETIRAcetam [Keppra TAB] 500 mg PO BID #60 tablet 09/20/14 09/26/17 10/20/14 Rx Citalopram Hydrobromide [celeXA] 40 mg PO DAILY 11/25/15 09/26/17 Unknown History Cholecalciferol (Vitamin D3) 1,000 unit PO DAILY 08/02/17 09/26/17 Unknown History [Vitamin D3] Finasteride [Proscar] 5 mg PO DAILY 08/02/17 09/26/17 Unknown History Tamsulosin HCl [Flomax] 0.4 mg PO DAILY 08/02/17 09/26/17 Unknown History Aspirin [Aspirin BABY CHEW TAB] 81 mg PO QDAY #30 tab.chew 09/26/17 Unknown Rx ALBUTEROL NEB's [Proventil 0.083% 2.5 mg IH QID PRN #1 box 04/25/20 Unknown Rx NEBS] Albuterol Mdi (or & Nicu Only) 2 puff IH QID PRN #8.5 gram 04/25/20 Unknown Rx [ProAir HFA Inhaler] Prednisone [predniSONE 10 mg 10 mg PO .TAPER #1 tab.ds.pk 04/25/20 Unknown Rx (6-Day Pack, 21 Tabs)] ED Review of Systems ROS: Stated complaint: DIFFICULTY BREATHING Other details as noted in HPI Comment: All other systems reviewed and negative Constitutional: denies: chills, fever Eyes: denies: eye pain, vision change ENT: denies: ear pain, throat pain Respiratory: cough, shortness of breath, wheezing Cardiovascular: denies: chest pain, edema Gastrointestinal: denies: abdominal pain, vomiting Genitourinary: denies: dysuria, discharge Musculoskeletal: denies: back pain, arthralgia Skin: denies: rash, lesions Neurological: denies: headache, weakness Physical Exam - Physical Exam Physical Exam: GENERAL: The patient is well-developed well-nourished. HENT: Normocephalic. Atraumatic. Patient has moist mucous membranes. EYES: Extraocular motions are intact. NECK: Supple. Trachea is midline. CHEST/LUNGS: Moderate wheezing throughout the bilateral lung field. There is mild tachypnea but no accessory muscle use. There is no respiratory distress noted. HEART/CARDIOVASCULAR: Regular. There is no tachycardia. There is no murmur. ABDOMEN: Abdomen is soft, nontender. Patient has normal bowel sounds. SKIN: Skin is warm and dry. NEURO: The patient is awake, alert, and oriented. The patient is cooperative. The patient has no focal neurologic deficits. Normal speech. MUSCULOSKELETAL: There is no tenderness or deformity. There is no limitation range of motion. ED Course - Reevaluation(s) Reevaluation #1: 04/25/20 01:09 Lab Results 04/24/20 04/24/20 04/24/20 Range/Units 22:27 22:27 22:27 WBC 11.8 H (4.5-11.0) K/mm3 RBC 5.07 H (3.65-5.03) M/mm3 Hgb 14.0 (11.8-15.2) gm/dl Hct 42.8 (35.5-45.6) % MCV 84 (84-94) fl MCH 28 (28-32) pg MCHC 33 (32-34) % RDW 17.2 H (13.2-15.2) % Plt Count 285 (140-440) K/mm3 Lymph % (Auto) 6.8 L (13.4-35.0) % [place] % (Auto) 5.5 (0.0-7.3) % Eos % (Auto) 3.2 (0.0-4.3) % Baso % (Auto) 0.4 (0.0-1.8) % Lymph # (Auto) 0.8 L (1.2-5.4) K/mm3 [place] # (Auto) 0.6 (0.0-0.8) K/mm3 Eos # (Auto) 0.4 (0.0-0.4) K/mm3 Baso # (Auto) 0.0 (0.0-0.1) K/mm3 Seg Neutrophils % 84.1 H (40.0-70.0) % Seg Neutrophils # 9.9 H (1.8-7.7) K/mm3 PT 12.9 (12.2-14.9) Sec. INR 0.99 (0.87-1.13) Sodium 141 (137-145) mmol/L Potassium 4.4 (3.6-5.0) mmol/L Chloride 102.4 (98-107) mmol/L Carbon Dioxide 29 (22-30) mmol/L Anion Gap 14 mmol/L BUN 14 (9-20) mg/dL Creatinine 1.1 (0.8-1.3) mg/dL Estimated GFR > 60 ml/min BUN/Creatinine Ratio 13 % Glucose 102 H (75-100) mg/dL Calcium 9.2 (8.4-10.2) mg/dL Troponin T < 0.010 (0.00-0.029) ng/mL NT-Pro-B Natriuret Pep 44.60 (0-900) pg/mL ED Medical Decision Making - Lab Data Result diagrams: 04/24/20 22:27 04/24/20 22:27 - EKG Data -: EKG Interpreted by Dc EKG shows normal: sinus rhythm, axis, intervals, QRS complexes, ST-T waves Rate: normal - EKG Data When compared to previous EKG there are: no significant change Interpretation: unchanged when compared t (04/17/19) - Radiology Data Radiology results: image reviewed interpreted by me: Chest x-ray shows hyperinflation of the lungs and flattening the diaphragm. No obvious pneumonia, pleural effusions. No pneumothorax. - Medical Decision Making This patient presents to the emergency department with complaint of shortness of breath and wheezing that he feels is consistent with his COPD. Patient does have moderate wheezing throughout the bilateral lung leung and some mild tachypnea, but there is no accessory muscle use, there is no conversational dyspnea, and the patient does not appear in any respiratory or acute distress. Vital signs have been reassuring throughout his ED course including being afebrile and there is no hypoxia. Chest x-ray shows hyperinflation of the lungs and flattening the diaphragms. There is no obvious pneumonia, pleural effusions, and there is no pneumothorax. Patient's labs have been unremarkable including CBC, metabolic panel, negative troponin, low BNP. The patient does not have any history of recent travel, surgery or immobility, and does not have any risk factors concerning for pulmonary embolic disease. He was given a continuous breathing treatment, Solu-Medrol and magnesium. The patient was reevaluated multiple times of multiple hours and both appears and feels greatly improved. The wheezing and bronchospasm has decreased. The patient was able to ambulate around the emergency department without any significant hypoxia or any increased work of breathing. From these reasons the patient appears safe for discharge at this time. He has been instructed to follow-up with his PCP through the [facility], and has been given outpatient referral for pulmonology. He has been given a prescription for steroids and a refill of his albuterol inhaler and nebulizer. He will return to the emergency department with any worsening of his symptoms or with any acute distress. Critical Care Time: No Critical care attestation.: If time is entered above; I have spent that time in minutes in the direct care of this critically ill patient, excluding procedure time. ED Disposition Clinical Impression: COPD exacerbation Disposition: DC-01 TO HOME OR SELFCARE Is pt being admited?: No Condition: Stable Instructions: Chronic Obstructive Pulmonary Disease, Chronic Obstructive Pulm onary Disease (ED) Additional Instructions: Please follow-up with your primary care physician in the next few days. I am giving you a referral for a local cellophane casting machine repairer, Dr. Foster, to follow-up regarding your COPD history. Take the medications as prescribed. Return to the emergency department with any worsening of your symptoms, new or concerning symptoms not addressed during this current emergency department visit, or with any acute distress. Prescriptions: Prednisone [predniSONE 10 mg (6-Day Pack, 21 Tabs)] 10 mg PO .TAPER #1 tab.ds.pk Albuterol Mdi (or & Nicu Only) [ProAir HFA Inhaler] 2 puff IH QID PRN #8.5 gram PRN Reason: Shortness Of Breath ALBUTEROL NEB's [Proventil 0.083% NEBS] 2.5 mg IH QID PRN #1 box PRN Reason: Wheezing Referrals: ANDERS FOSTER MD [Staff Physician] - 3-5 Days [facility] [Outside] - 3-5 Days Time of Disposition: 01:09
--- NOTE | 2020-04-24 22:30 | XRay Report ---
CHEST 1 VIEW INDICATION / CLINICAL INFORMATION: SOB. COMPARISON: 04/17/2019 FINDINGS: SUPPORT DEVICES: None. HEART / MEDIASTINUM: Stable. LUNGS / PLEURA: No significant pulmonary or pleural abnormality. No pneumothorax. No confluent infilt rates or pleural effusions. ADDITIONAL FINDINGS: No significant additional findings. IMPRESSION: 1. No acute findings. No significant interval change since 04/17/2019. Signer Name: Thomas Anders MD Signed: 04/24/2020 10:26 PM Workstation Name: [id number]
[2020-04-24 22:46] LABS: Basophils % (Auto) 0.4 % (0.0-1.8); Eosinophils # (Auto) 0.4 K/mm3 (0.0-0.4); Eosinophils % (Auto) 3.2 % (0.0-4.3); Hematocrit 42.8 % (35.5-45.6); Lymphocytes # (Auto) 0.8 K/mm3 (1.2-5.4); Lymphocytes % (Auto) 6.8 % (13.4-35.0); Mean Corpuscular HGB Conc 33 % (32-34); Mean Corpuscular Volume 84 fl (84-94); Monocytes # (Auto) 0.6 K/mm3 (0.0-0.8); Monocytes % (Auto) 5.5 % (0.0-7.3); Platelet Count 285 K/mm3 (140-440); Red Blood Count 5.07 M/mm3 (3.65-5.03); Red Cell Distribution Width 17.2 % (13.2-15.2)
[2020-04-24 22:56] LABS: INR 0.99 (0.87-1.13)
[2020-04-24 23:05] LABS: BUN/Creatinine Ratio 13; Blood Urea Nitrogen 14 mg/dL (9-20); Calcium 9.2 mg/dL (8.4-10.2); Hemolysis Index 21
[2020-04-25 01:25] VITALS: BP 154/96
== END 2020-04-25 01:25 | disposition home or self-care (01) ==
LOC: ED 21:18
DX: J44.1 Chronic obstructive pulmonary disease with (acute) exacerbation (principal); I10 Essential (primary) hypertension
CPT/HCPCS: 36415; 71045; 80048; 83880; 84484; 85025; 85610; 93005; 94644; 96365; 96375; 99284; J2930; J3475

== ENCOUNTER 2020-10-29 09:56 | Emergency (ER) | payer MEDICARE ==
--- NOTE | 2020-10-29 10:15 | Emergency Department Report ---
ED General Adult HPI - General Chief complaint: Dyspnea/Respdistress Stated complaint: MIROSLAVA/COPD PUI?: No Time Seen by Provider: 10/29/20 10:13 Source: patient, RN notes reviewed, old records reviewed Mode of arrival: Ambulatory Limitations: No Limitations - History of Present Illness Initial comments: The patient was evaluated in the emergency department for symptoms described in the history of present illness. He/she was evaluated in the context of the global COVID-19 pandemic, which necessitated consideration that the patient might be at risk for infection with the virus that causes COVID-19. Institutional protocols and algorithms that pertain to the evaluation of patients at risk for COVID-19 are in a state of rapid change based on information released by regulatory bodies including the CDC and federal and state organizations. These policies and algorithms were followed during the patient's care in the emergency department. Please note that these policies, procedures and recommendations changed on a rapid basis. Primary CARE doctor: [facility] Past medical history: COPD, not on home oxygen. Meningioma, history of seizure/convulsion Up-to-date with COVID-19 vaccination series The patient is a 69-year-old gentleman, who is not known to myself previously. He presents to the ER with a complaint of painless wheezing and shortness of breath. He feels like his COPD is acting up. He denies headache, neck pain, chest pain, abdominal pain, vomiting, diaphoresis, travel, leg pain or leg swelling, DVT and pulmonary embolism risk factors. He denies loss of taste and smell. He has not really been coughing. He denies sputum production. He reports using his inhaler at home, with minimal improvement in symptoms. He is not quite sure what his medications are as far as long-term maintenance meds. -: Gradual, days(s) Consistency: constant Improves with: movement, rest - Related Data Home Medications Medication Instructions Recorded Confirmed Last Taken Citalopram Hydrobromide [celeXA] 40 mg PO DAILY 11/25/15 09/26/17 Unknown Cholecalciferol (Vitamin D3) 1,000 unit PO DAILY 08/02/17 09/26/17 Unknown [Vitamin D3] Finasteride [Proscar] 5 mg PO DAILY 08/02/17 09/26/17 Unknown Tamsulosin HCl [Flomax] 0.4 mg PO DAILY 08/02/17 09/26/17 Unknown Previous Rx's Medication Instructions Recorded Last Taken Type levETIRAcetam [Keppra TAB] 500 mg PO BID #60 tablet 09/20/14 10/20/14 Rx Aspirin [Aspirin BABY CHEW TAB] 81 mg PO QDAY #30 tab.chew 09/26/17 Unknown Rx ALBUTEROL NEB's [Proventil 0.083% 2.5 mg IH QID PRN #1 box 04/25/20 Unknown Rx NEBS] Albuterol Mdi (or & Nicu Only) 2 puff IH QID PRN #8.5 gram 04/25/20 Unknown Rx [ProAir HFA Inhaler] Prednisone [predniSONE 10 mg 10 mg PO .TAPER #1 tab.ds.pk 04/25/20 Unknown Rx (6-Day Pack, 21 Tabs)] Albuterol Sulfate [Albuterol 0.63% 0.63 mg IH Q4HR PRN #2 ml 10/29/20 Unknown Rx NEBS] Albuterol Sulfate [Proair 90 mcg IH Q4HR PRN #2 aer.pow.ba 10/29/20 Unknown Rx Respiclick] DOXYCYCLINE Hyclate [Vibramycin] 100 mg PO Q12HR #10 capsule 10/29/20 Unknown Rx Ipratropium (Nf) [Atrovent] 2 puff IH Q6HR PRN #1 inha 10/29/20 Unknown Rx Ipratropium [Atrovent NEB] 0.5 mg IH Q4HR #2 ml 10/29/20 Unknown Rx predniSONE [Deltasone] 40 mg PO QDAY #8 tab 10/29/20 Unknown Rx Allergies Allergy/AdvReac Type Severity Reaction Status Date / Time No Known Allergies Allergy Verified 10/25/17 08:47 ED Review of Systems ROS: Stated complaint: MIROSLAVA/COPD Other details as noted in HPI Constitutional: other (Denies loss of taste and smell). denies: fever, malaise ENT: congestion Respiratory: shortness of breath, SOB with exertion, SOB at rest, wheezing. denies: cough Cardiovascular: denies: chest pain Gastrointestinal: denies: abdominal pain Genitourinary: denies: dysuria Musculoskeletal: denies: back pain Neurological: weakness Hematological/Lymphatic: denies: easy bleeding ED Past Medical Hx - Past Medical History Previous Medical History?: Yes Hx Hypertension: Yes Hx Heart Attack/AMI: No Hx Congestive Heart Failure: No Hx Diabetes: No Hx Deep Vein Thrombosis: No Hx Seizures: Yes Hx Asthma: No Hx COPD: Yes Additional medical history: 3.5 cm frontal mass secondary to meningioma seen on MRI 09/18/2014 (surgically removed) - Surgical History Past Surgical History?: Yes Hx Coronary Stent: No Hx Pacemaker: No Hx Internal Defibrillator: No Hx Appendectomy: Yes Additional Surgical History: Brain sx - Social History Smoking Status: Former Smoker Substance Use Type: Alcohol - Medications Home Medications: Home Medications Medication Instructions Recorded Confirmed Last Taken Type levETIRAcetam [Keppra TAB] 500 mg PO BID #60 tablet 09/20/14 09/26/17 10/20/14 Rx Citalopram Hydrobromide [celeXA] 40 mg PO DAILY 11/25/15 09/26/17 Unknown History Cholecalciferol (Vitamin D3) 1,000 unit PO DAILY 08/02/17 09/26/17 Unknown History [Vitamin D3] Finasteride [Proscar] 5 mg PO DAILY 08/02/17 09/26/17 Unknown History Tamsulosin HCl [Flomax] 0.4 mg PO DAILY 08/02/17 09/26/17 Unknown History Aspirin [Aspirin BABY CHEW TAB] 81 mg PO QDAY #30 tab.chew 09/26/17 Unknown Rx ALBUTEROL NEB's [Proventil 0.083% 2.5 mg IH QID PRN #1 box 04/25/20 Unknown Rx NEBS] Albuterol Mdi (or & Nicu Only) 2 puff IH QID PRN #8.5 gram 04/25/20 Unknown Rx [ProAir HFA Inhaler] Prednisone [predniSONE 10 mg 10 mg PO .TAPER #1 tab.ds.pk 04/25/20 Unknown Rx (6-Day Pack, 21 Tabs)] Albuterol Sulfate [Albuterol 0.63% 0.63 mg IH Q4HR PRN #2 ml 10/29/20 Unknown Rx NEBS] Albuterol Sulfate [Proair 90 mcg IH Q4HR PRN #2 aer.pow.ba 10/29/20 Unknown Rx Respiclick] DOXYCYCLINE Hyclate [Vibramycin] 100 mg PO Q12HR #10 capsule 10/29/20 Unknown Rx Ipratropium (Nf) [Atrovent] 2 puff IH Q6HR PRN #1 inha 10/29/20 Unknown Rx Ipratropium [Atrovent NEB] 0.5 mg IH Q4HR #2 ml 10/29/20 Unknown Rx predniSONE [Deltasone] 40 mg PO QDAY #8 tab 10/29/20 Unknown Rx ED Physical Exam - General Limitations: No Limitations General appearance: alert, in distress (Mild respiratory distress) - Head Head exam: Present: atraumatic, normocephalic - Eye Eye exam: Present: normal appearance, EOMI. Absent: nystagmus - ENT ENT exam: Present: normal exam, normal orophraynx, mucous membranes moist, normal external ear exam - Neck Neck exam: Present: normal inspection, full ROM. Absent: tenderness, meningismus - Respiratory Respiratory exam: Present: respiratory distress, wheezes, rhonchi, accessory muscle use. Absent: stridor - Cardiovascular Cardiovascular Exam: Present: regular rate, normal rhythm, normal heart sounds. Absent: bradycardia, tachycardia, irregular rhythm, systolic murmur, diastolic murmur, rubs, gallop - GI/Abdominal GI/Abdominal exam: Present: soft. Absent: distended, tenderness, guarding, rebound, rigid, pulsatile mass - Rectal Rectal exam: Present: deferred - Extremities Exam Extremities exam: Present: normal inspection, full ROM, other (2+ pulses noted in the bilateral upper and lower extremities. There is no palpable cord. negative Homans sign. Muscular compartments are soft. The pelvis is stable.). Absent: pedal edema, calf tenderness - Back Exam Back exam: Present: normal inspection. Absent: tenderness, CVA tenderness (R), CVA tenderness (L), paraspinal tenderness, vertebral tenderness - Neurological Exam Neurological exam: Present: alert, normal gait, other (No facial droop. Tongue midline. Extraocular movements intact bilaterally. Facial sensation intact to light touch in V1, V2, V3 distribution bilaterally. 5 and a 5 strength in 4 extremities. Sensation intact to light touch in 4 extremities.). Absent: motor sensory deficit - Psychiatric Psychiatric exam: Present: normal affect, normal mood - Skin Skin exam: Present: warm, dry, intact, normal color. Absent: rash ED Course Vital Signs 10/29/20 10/29/20 10/29/20 10:02 11:00 11:01 Temperature 97.7 F Pulse Rate 73 72 Pulse Rate [ 72 Anterior Bilateral] Respiratory 24 18 Rate Respiratory 18 Rate [Anterior Bilateral] Blood Pressure 162/104 Blood Pressure 156/97 [Right] O2 Sat by Pulse 92 97 Oximetry 10/29/20 10/29/20 12:01 13:01 Temperature Pulse Rate 72 76 Pulse Rate [ Anterior Bilateral] Respiratory 21 21 Rate Respiratory Rate [Anterior Bilateral] Blood Pressure 135/91 123/77 Blood Pressure [Right] O2 Sat by Pulse 96 93 Oximetry - Reevaluation(s) Reevaluation #1: 10/29/20 10:34 Differential diagnosis, including but not limited to: COPD, bronchitis, pneumonia Assessment and plan: 69-year-old gentleman, who denies DVT and pulmonary embolism risk factors, who is low risk by Wells criteria for pulmonary embolism, with a known history of COPD, who typically follows at the [facility], present ing with probable COPD exacerbation, most likely presenting withexpected natural history of COPD. He is up-to-date with Covid vaccinations, and he denies loss of taste and smell, as well as Covid contacts. Place patient on monitoring coordinator, start albuterol, Atrovent, steroids, obtain x- ray of the chest, appropriate laboratory studies and reassess. EKG today appears to be unchanged from prior, with the exception of what appears to be relatively new right axis deviation, prior EKGs from April 2020. This is likely secondary to his underlying COPD. 10/29/20 14:29 Patient reexamined multiple times. He feels much improved. Wheezing resolved. Work of breathing resolved. Accessory muscle use resolved. He is currently talking, playing and texting on his cellular phone. Patient had a prolonged stay here in the emergency room because his initial round of laboratory testing was hemolyzed. This required repeat testing, which took a long time to result. Nevertheless, his objective laboratory testing is unremarkable. He reports readiness for discharge. Return precautions are reviewed. ED Medical Decision Making - Lab Data Result diagrams: 10/29/20 10:51 10/29/20 12:19 Vital Signs 10/29/20 10:02 Temperature 97.7 F Pulse Rate 73 Respiratory 24 Rate Blood Pressure 156/97 [Right] O2 Sat by Pulse 92 Oximetry - EKG Data -: EKG Interpreted by Md EKG shows normal: sinus rhythm Rate: normal - EKG Data 10/29/20 10:36 EKG interpreted at 10: 17 Sinus rhythm, normal P wave axis. Right axis deviation, left ventricular hypertrophy, motion artifact, atrial enlargement. This is an abnormal EKG. This is not a STEMI. - Radiology Data Radiology results: pending, report reviewed, image reviewed [facility] [address] [place] [address] XRay Report Signed Patient: BLAS LIVINGSTON II, JR R#: [id number] : 1950 Acct:[id number] Age/Sex: 69 / M ADM Date: 10/29/20 Loc: ED Attending Dr: Ordering Physician: ASCENCION KUMAR MD Date of Service: 10/29/20 Procedure(s): XR chest 1V ap Accession Number(s): [id number] cc: ASCENCION KUMAR MD Fluoro Time In Minutes: CHEST 1 VIEW INDICATION: dyspnea. COMPARISON: 04/24/2020 FINDINGS: Support devices: None. Heart: Within normal limits. Lungs/Pleura: No acute air space or interstitial disease. Additional findings: None. IMPRESSION: No acute findings. Signer Name: Enzo Verduzco Jr, MD Signed : 10/29/2020 10:56 AM Workstation Name: [id number] Transcribed By: TTR Dictated By: ENZO VERDUZCO JR, MD Electronically Authenticated By: ENZO VERDUZCO JR, MD Signed Date/Time: 10/29/20 1056 DD/ 1056 Critical Care Time: Yes Critical care time in (mins) excluding proc time.: 35 Critical care attestation.: If time is entered above; I have spent that time in minutes in the direct care of this critically ill patient, excluding procedure time. ED Disposition Clinical Impression: COPD exacerbation Disposition: DC-01 TO HOME OR SELFCARE Is pt being admited?: No Does the pt Need Aspirin: No Condition: Good Instructions: Chronic Obstructive Pulmonary Disease (ED), Chronic Obstructive Pulmonary Disease, [id number] Additional Instructions: Please take the medications as needed and directed. Use albuterol every 4-6 hours for the next 5 days. Use the Atrovent as directed, steroids and antibiotics as directed. Please follow-up with your primary care doctor or geospatial systems integrator within the next 3 to 5 days for repeat checkup and evaluation. For the patient's convenience, we have listed a number of local pulmonology specialists that the patient may follow-up with. Advance diet as tolerated. When taking doxycycline, avoid prolonged exposure to the sun, and avoid Motrin, ibuprofen, Naprosyn, Aleve, tobacco, alcohol, smoke products, as well as heavy and spicy foods. Doxycycline may cause stomach upset. Please return to the emergency room right away with new pain, worsened pain, migration of pain, projectile vomiting, change in mental status, confusion, inability to tolerate liquid feeds, new, worsened or different symptoms not present on the initial emergency room evaluation Referrals: KALIE URBAN MD [Staff Physician] - 3-5 Days EDSON CARLIN MD [Staff Physician] - 3-5 Days
[2020-10-29] MEDS ORDERED: IPRATROPIUM 0.02% NEBU 2.5 ML IH ONE (10:22)
[2020-10-29] MEDS ORDERED: methylPREDNISolone Sod Succinate 125 MG/2 ML INJ IV ONE (10:22)
[2020-10-29] MEDS ORDERED: ALBUTEROL 2.5 MG/3 ML NEBU IH ONE (10:22)
--- NOTE | 2020-10-29 11:01 | XRay Report ---
CHEST 1 VIEW INDICATION: dyspnea. COMPARISON: 04/24/2020 FINDINGS: Support devices: None. Heart: Within normal limits. Lungs/Pleura: No acute air space or interstitial disease. Additional findings: None. IMPRESSION: No acute findings. Signer Name: Enzo Verduzco Jr, MD Signed: 10/29/2020 10:56 AM Workstation Name: [id number]
[2020-10-29 11:18] LABS: Hematocrit 44.3 % (35.5-45.6); Hemoglobin 15.1 gm/dl (11.8-15.2); Mean Corpuscular HGB Conc 34 % (32-34); Mean Corpuscular Volume 85 fl (84-94); Platelet Count 271 K/mm3 (140-440); Red Blood Count 5.22 M/mm3 (3.65-5.03); Red Cell Distribution Width 17.1 % (13.2-15.2)
[2020-10-29 11:51] LABS: INR 14.76 (0.87-1.13)
[2020-10-29 14:09] LABS: BUN/Creatinine Ratio 11; Blood Urea Nitrogen 11 mg/dL (9-20); Calcium 9.4 mg/dL (8.4-10.2); Hemolysis Index 7
[2020-10-29 15:02] VITALS: BP 105/71
--- NOTE | 2020-11-08 10:28 | Electrocardiograph Report ---
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
== END 2020-10-29 14:50 | disposition home or self-care (01) ==
LOC: ED 09:56
DX: J44.1 Chronic obstructive pulmonary disease with (acute) exacerbation (principal); I10 Essential (primary) hypertension; R56.9 Unspecified convulsions; Z90.49 Acquired absence of other specified parts of digestive tract; Z87.891 Personal history of nicotine dependence; Z79.899 Other long term (current) drug therapy
CPT/HCPCS: 36415; 71045; 80048; 82550; 83735; 85027; 85610; 93005; 94644; 96374; 99291; J2930